=== PATIENT | male | born 1930 | race Caucasian/White ===

== ENCOUNTER 2017-09-25 14:26 | Inpatient (IN) | payer MEDICARE ==
[2017-09-25] MEDS ORDERED: 0.9 % SODIUM CHLORIDE 1,000 ML BAG IV ONE (14:53)
--- NOTE | 2017-09-25 15:03 | Emergency Department Record ---
History of Present Illness - General Chief Complaint: Fall Injury Stated Complaint: FALL Time Seen by Provider: 09/25/17 14:48 Source: Patient Mode of Arrival: EMS Limitations: No limitations - History of Present Illness Initial Comments: The patient is here due to not feeling well for at least 2 weeks. He has had a cough with congestion for 2 weeks. Additionally he has been really weak. Today he had trouble getting off the cammode so his called EMS. The patient denies any CP, fever, chills, SOB, PALACIOS or vomiting. 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 Fall Witnessed: Yes, by family Place Fall Occurred: Home Loss of Consciousness: None Prolonged Down Time?: No Symptoms Prior to Fall: Other Context: Recent illness - Eduard Coma Scale Eye Response: (4) Open spontaneously Motor Response: (6) Obeys commands Verbal Response: (5) Oriented [place] Total: 15 - Related Data Home Medications Medication Instructions Recorded Confirmed Last Taken Furosemide [Furosemide] 40 mg PO DAILY 09/25/17 09/25/17 Unknown Losartan Potassium [Losartan 50 mg PO DAILY 09/25/17 09/25/17 Unknown Potassium] Previous Rx's Medication Instructions Recorded Ascorbic Acid [Vitamin C] 1,000 mg PO DAILY #30 tab 12/08/15 Carvedilol [Coreg] 3.125 mg PO BIDWM #60 tablet 12/08/15 Multivitamin/Iron/Folic Acid 1 tab PO DAILY #100 tablet 12/08/15 [Centrum] Allergies Allergy/AdvReac Type Severity Reaction Status Date / Time No Known Drug Allergies Allergy Verified 09/25/17 14:31 Travel Screening - Travel/Exposure Within Last 30 Days Have you traveled within the last 30 days?: No - Travel/Exposure Within Last Year Have you traveled outside the [place] in the last year?: No - Additonal Travel Details Have you been exposed to anyone with a communicable illness?: No - Travel Symptoms Symptom Screening: None Review of Systems Constitutional: Denies: Chills, Fever Eyes: Denies: Eye discharge ENT: Reports: Congestion Respiratory: Reports: Cough. Denies: Dyspnea Past Medical History - SOCIAL HISTORY Smoking Status: Never smoker Alcohol Use: None Drug Use: None - RESPIRATORY Hx Respiratory Disorders: No Hx Sleep Apnea: Yes (none after neck surgery) - CARDIOVASCULAR Hx Cardio Disorders: Yes Hx Hypertension: Yes Comment:: w/c - NEURO Hx Neuro Disorders: Yes Hx TIA: Yes - GI Hx GI Disorders: Yes Hx Reflux: Yes Hx Ulcer: Yes Hx of Polyps: Yes - Hx Genitourinary Disorders: Yes Hx Bladder Problem: Yes - ENDOCRINE Hx Endocrine Disorders: No Hx Diabetes: No - MUSCULOSKELETAL Hx Musculoskeletal Disorders: Yes Hx Arthritis: Yes - PSYCH Hx Psych Problems: No - HEMATOLOGY/ONCOLOGY Hx Hematology/Oncology Disorders: Yes Hx Cancer: Yes (colon CA-recent resection) Hx Chemotherapy: No Hx Radiation Therapy: No Hx Blood Transfusions: Yes Family Medical History Any Significant Family History?: Yes Hx Cancer: Mother *Cancer Comment: uterine Physical Exam - General General Appearance: Alert, Oriented x3, Cooperative, No acute distress - Head Head exam: Atraumatic, Normocephalic, Normal inspection - Eye Eye exam: Normal appearance, PERRL - ENT Throat exam: Normal inspection. negative: Tonsillar erythema, Tonsillar exudate - Neck Neck exam: Normal inspection, Full ROM. negative: Tenderness - Respiratory Respiratory exam: Normal lung sounds bilaterally. negative: Respiratory distress - Cardiovascular Cardiovascular Exam: Regular rate, Normal rhythm, Normal heart sounds - GI/Abdominal GI/Abdominal exam: Soft, Normal bowel sounds. negative: Tenderness - Extremities Extremities exam: Normal inspection, Full ROM, Normal capillary refill. negative: Tenderness Course Vital Signs 09/25/17 14:40 Temperature 98.6 F Pulse Rate 95 H Respiratory 18 Rate Blood Pressure 160/99 Pulse Ox 96 - Reevaluation(s) Reevaluation #1: The patient is doing OK at this time but is still coughing up colored phlegm. He denies any KAYLAH or SOB presently. I did discuss the issues with the and it appears she cannot handle taking care of him at home due to his overall poor physical condition. Because of that and the fact it appears he has pneumonia we will admit him to the hospital for IV abx's and a social welfare research worker consult. I did discuss the case with Dr. Snyder and he does agree with the plan. 09/25/17 16:17 Medical Decision Making - Data Complexity MDM Data: Labs Ordered and/or Reviewed, X-Ray Ordered and/or Reviewed - Lab Data Result diagrams: 09/25/17 15:00 09/25/17 15:00 - Radiology Data Radiology results: Report reviewed (CXR: Bilateral lower lobe infiltrates, atelectasis vs infiltrates.) Disposition Disposition: Admit Clinical Impression: Physical deconditioning Pneumonia Qualifiers: Pneumonia type: due to unspecified organism Laterality: bilateral Lung location : lower lobe of lung Qualified Code(s): J18.9 - Pneumonia, unspecified organism Disposition: Still a Patient at [facility] Decision to Admit: Admit from ER Decision to Admit Date: 09/25/17 Decision to Admit Time: 16:20 Accepting Physician: Sarah Time Discussed w/Accepting Physician: 16:20 Condition: (2) Stable Forms: Patient Portal Access Time of Disposition: 16:20 Quality - Quality Measures Quality Measures: N/A - Blood Pressure Screening View Details: Yes Does Patient Have Any of the Following: Active Dx of HTN Blood Pressure Classification: Hypertensive Reading Systolic Measurement: 160 Diastolic Measurement: 99 Screening for High Blood Pressure: Patient Exclusion, Hx of HTN [[id number]]
[2017-09-25 15:24] LABS: BASO % 0.1 % (0-6); EOS % 0.1 % (0-6); HEMATOCRIT 41.8 % (42.0-52.0); HEMOGLOBIN 14.1 gm/dl (14.0-18.0); LYMPH % 3.6 % (16-45); MEAN CELL VOLUME 91.7 fl (81-97); MEAN CORPUSCULAR HEMOGLOBIN 30.9 pg (27-33); MEAN CORPUSCULAR HGB CONC 33.7 g/dl (32-36); PLATELET COUNT 397 K/uL (130-400); RED BLOOD COUNT 4.56 M/uL (4.40-5.70); RED CELL DISTRIBUTION WIDTH 12.3 % (11.5-14.5); URINE APPEARANCE CLEAR; URINE BILIRUBIN NEGATIVE (NEGATIVE); URINE BLOOD TRACE-I (NEGATIVE); URINE COLOR YELLOW; URINE GLUCOSE (UA) NEGATIVE (NEGATIVE); URINE KETONE NEGATIVE (NEGATIVE); URINE LEUKOCYTE ESTERASE NEGATIVE (NEGATIVE); URINE NITRITE NEGATIVE (NEGATIVE); URINE PROTEIN NEGATIVE (NEGATIVE); URINE UROBILINOGEN 0.2 E.U./dL (0.20 - 1.00)
[2017-09-25 15:28] LABS: BLOOD UREA NITROGEN 10 mg/dL (8-23); CREATININE 0.6 mg/dL (0.7-1.2); EST GLOMERULAR FILTRATION RATE > 60 mL/min
[2017-09-25 15:29] LABS: WHITE BLOOD COUNT W/O DIFF 25.4 K/uL (4.2-12.2)
[2017-09-25 15:31] LABS: GLUCOSE,RANDOM 207 mg/dL (74-109)
[2017-09-25] MEDS ORDERED: POTASSIUM CHLORIDE 20 MEQ TABLET PO ONE (15:40)
[2017-09-25 15:42] LABS: URINE BACTERIA FEW; URINE EPITHELIAL CELLS 0 - 2 (FEW); URINE WBC 0 - 2 (0-2/hpf)
[2017-09-25 15:46] LABS: PLATELET ESTIMATE NORMAL (NORMAL)
[2017-09-25] MEDS ORDERED: AZITHROMYCIN 500 MG in 0.9 % SODIUM CHLORIDE 250ML 250 ML IVPB ONE (16:15)
[2017-09-25] MEDS ORDERED: CEFTRIAXONE SODIUM 1 GM in 0.9 % SODIUM CHLORIDE 100ML 100 ML IVPB ONE (16:15)
[2017-09-25] MEDS: IPRATROPIUM/ALBUTEROL (0.5MG/3MG) NEB INH SCH ×2 (17:48→21:55)
[2017-09-25] MEDS ORDERED: AZITHROMYCIN 500 MG in 0.9 % SODIUM CHLORIDE 250ML 250 ML IVPB SCH (18:00)
[2017-09-25] MEDS: CARVEDILOL 3.125 MG TABLET PO SCH (18:02)
[2017-09-25] MEDS: GUAIFENESIN/D-METH. 10 ML UDC PO PRN (20:56)
[2017-09-25] MEDS: ACETAMINOPHEN 325 MG TAB PO PRN (20:57)
[2017-09-26] MEDS: DIPHENHYDRAMINE HCL 25 MG CAPSULE PO PRN ×2 (02:13→21:45)
[2017-09-26] MEDS: CEFTRIAXONE SODIUM 1 GM in 0.9 % SODIUM CHLORIDE 100ML 100 ML IVPB SCH ×2 (03:23→16:39)
[2017-09-26] MEDS: IPRATROPIUM/ALBUTEROL (0.5MG/3MG) NEB INH SCH ×5 (06:25→21:28)
[2017-09-26 06:47] LABS: HEMATOCRIT 38.6 % (42.0-52.0); HEMOGLOBIN 12.6 gm/dl (14.0-18.0); MEAN CELL VOLUME 92.8 fl (81-97); MEAN CORPUSCULAR HGB CONC 32.6 g/dl (32-36); MEAN PLATELET VOLUME 11.1 fl (7.4-10.4); PLATELET COUNT 358 K/uL (130-400); RED BLOOD COUNT 4.16 M/uL (4.40-5.70); RED CELL DISTRIBUTION WIDTH 12.2 % (11.5-14.5); WHITE BLOOD COUNT W/O DIFF 16.9 K/uL (4.2-12.2)
[2017-09-26 07:01] LABS: ALB/GLOB RATIO 0.8 (1.1-1.8); ALBUMIN 2.8 g/dL (4.0-5.0); ALKALINE PHOSPHATASE 67 U/L (40-129); ALT/SGPT 16 U/L (<41); AST/SGOT 16 U/L (10.0-50.0); BLOOD UREA NITROGEN 11 mg/dL (8-23); CREATININE 0.6 mg/dL (0.7-1.2); EST GLOMERULAR FILTRATION RATE > 60 mL/min; GLUCOSE,RANDOM 125 mg/dL (74-109); TOTAL PROTEIN 6.5 g/dL (6.6-8.7)
[2017-09-26 07:10] LABS: MEAN CORPUSCULAR HEMOGLOBIN 30.2 pg (27-33)
[2017-09-26] MEDS: CARVEDILOL 3.125 MG TABLET PO SCH ×2 (07:40→16:38)
--- NOTE | 2017-09-26 07:53 | RADIOLOGY REPORT ---
EXAM: CHEST, TWO VIEWS HISTORY: COUGH. DIFFICULTY IN BREATHING AND WEAKNESS. TECHNIQUE: Upright AP and lateral views of the chest were obtained. Comparison: Two view chest radiographic examination dated 11/20/15. Single view chest dated 11/27/15. FINDINGS: The cardio-pericardial silhouette projects borderline enlarged. No definite new pulmonary venous hypertension is seen. Mixed opacities in each lung base are present appearing slightly worsened in the interval. No new lung consolidation, costophrenic angle blunting or pneumothorax. IMPRESSION: 1. 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 2. MIXED PRIMARILY RETICULONODULAR OPACITIES IN THE LOWER LUNGS APPEAR MILDLY WORSENED IN THE INTERVAL. DIAGNOSTIC CONSIDERATIONS INCLUDE CHRONIC INTERSTITIAL CHANGE, ATELECTASIS, INFILTRATE AND MILD EDEMA. JOB NUMBER: [id number] [facility]
[2017-09-26] MEDS: POTASSIUM CHLORIDE 20 MEQ TABLET PO SCH (09:19)
[2017-09-26] MEDS: LOSARTAN POTASSIUM 25 MG TABLET PO SCH (09:19)
[2017-09-26] MEDS: FUROSEMIDE 40 MG TABLET PO SCH (09:20)
--- NOTE | 2017-09-26 09:21 | Rehab Evaluation ---
Patient Information - Patient Information Diagnosis: Acute Pneumonia with deconditioning Ordered Treatment: PT Evaluate and Treat Status: Initial Evaluation Surgery: No Past Medical/Surgical Hx: PAST MEDICAL/SURGICAL HISTORY Past Surgical History Cholecystectomy Back/neck surgery x's 5 T&A Colonoscopy removal of cancerous polyp PMH - Respiratory Hx Respiratory Disorders No Hx Sleep Apnea Yes: none after neck surgery PMH - Cardiovascular Hx Cardiovascular Disorders Yes Hx Hypertension Yes Hx Transient Ischemic Attacks Yes (TIA) Comment: w/c PMH - Neuro Hx Neurological Disorders Yes Hx Transient Ischemic Attacks Yes (TIA) PMH - GI Hx Gastrointestinal Disorders Yes Hx Gastroesophageal Reflux Yes Hx Ulcer Yes PMH - Hx Genitourinary Disorders Yes Hx Bladder Problem Yes PMH - Endocrine Hx Endocrine Disorders No Hx Diabetes No PMH - Musculoskeletal Hx Musculoskeletal Disorders Yes Hx Arthritis Yes PMH - Psych Hx Psychiatric Problems No PMH - Hematology/Oncology Hx Hematology/Oncology Yes Disorders Hx Cancer Yes: colon CA-recent resection Hx Chemotherapy No Hx Radiation Therapy No Social History: Detail (The patient lives in a 2 family home with his and his son's family. The patient lives on the main floor with his , while his son and his family live in the basement level. The patient's home has 3 steps to enter at both the garage entrance and front door entrance. There is a railing at both entrances, but on unspecified side. The patient utilizes a walk- in shower, that does not have a seat, or grab bars present. The toilet is elevated, and has grab bars present. He said that he uses a 4WW for ambulation. He said that he also has access to a wheelchair and commode.) - Time With Patient Total Time Spent With Patient (Min): 25 Treatment Procedures: Detail (PT Initial Evaluation) Subjective Information - Subjective Information Per Patient (The patient states that he is having some pain, and did not specify a location. He stated that the pain was everywhere. Has complaints of increased coughing and secretions.) Objective Data - Pain Pain Present: Yes (Did not specify location) Pain Intensity: 7 Pain Scale Used: Numeric (1 - 10) - Mental Status Patient Orientation: Person, Place (Required cues to orient to place - stated city only.), Time (Patient was not oriented to time, as he stated it was 1977) - ROM Within normal limits - Strength/Tone Within normal limits (B Hip Flexion 4+/5, B Hip Add/Abduction 4+/5, B Knee Extension 5/5, B Knee Flexion 4/5, R Ankle Plantarflexion 5/5 Dorsiflexion 4+/5 , L Ankle Plantarflexion 4/5 Dorsiflexion 3+/5) - Bed Mobility Needs Assist (The patient refused to complete any bed mobility tasks for evaluation purposes on 2 separate visits. Stated that he was too tired/ill to complete activities.) - Transfers Needs Assist (The patient refused to complete any transfer tasks for evaluation purposes on 2 separate visits. Stated that he was too tired/ill to complete activities.) - Balance Balance Sitting: Good (Was able to sit statically without any loss of balance in both his chair and with head of bed elevated.) Balance Standing: Good (Not Assessed - Patient refused to complete any gait activities as he wanted to stay in bed due to feeling ill) - Sensation Intact - Gait Detail (Not assessed - The patient refused gait activities during initial evaluation. Will need to assess gait at future visits to assess for safety in the home.) Therapy Assessment - Therapy Assessment Detail (The patient had minimally decreased strength in the LEs. All mobility and transfer skills were not assessed due to patient refusal because he was feeling ill this morning. The patient's gait and transfer skills will need to be assessed prior to discharge from inpatient stay.) Problem List - Problem List Physical Therapy Problem List: Detail (1) Increased coughing and secretions 2) Decreased energy levels 3) Decreased LE Strength 4) Gait and Mobility not assessed) Goals - Goals Physical Therapy Goals: 1) The patient's gait skills will be assessed to examine safety in the home. 2) The patient's transfers and bed mobiltiy will be assessed to examine patient's functional ability. Prognosis - Prognosis Moderate Plan - Plan Physical Therapy Plan: The patient's gait, transfer skills, and bed mobility will be assessed to make further recommendations for discharge.
[2017-09-26] MEDS: ACETAMINOPHEN 325 MG TAB PO PRN ×2 (09:27→16:38)
--- NOTE | 2017-09-26 10:08 | History & Physical ---
History of Present Illness - Date of Service Date of Service for History & Physical: 09/26/17 - History of Present Illness Admitting Diagnosis: 1. Acute Pneumonia with Deconditioning. History of Present Illness: Mr. Pollard is a 86 y/o who came in because of fall off of the toilet at home. He says that he fell between between the toilet and shower but he did not injure himself. The patient also describes a 3 week cough productive of green phlegm and streaks of blood. The patient describes weakness, loss of appetite, sleep disturbance and has increasing shortness of breath. He tried using over the counter medications but did not get any relief. He denies recent travel or sick contacts and has had influenza vaccine and is up to date on pneumonia vaccine. On admission the patient had chest radiograph which shows some opacification of the lower lungs suspicious for pneumonia. The patient has been started on treatment for community acquired pneumonia and admitted for IV antibiotics. On evaluation at bedside this morning the patient appears to be resting comfortably and does not appear to be in acute distress. He still has intermittent cough despite being on Robitsussin DM PRN. Travel Screening - Travel/Exposure Within Last 30 Days Have you traveled within the last 30 days?: No - Travel/Exposure Within Last Year Have you traveled outside the [place] in the last year?: No - Additonal Travel Details Have you been exposed to anyone with a communicable illness?: No - Travel Symptoms Symptom Screening: None Review of Systems Constitutional: Denies: Chills, Fever Eyes: Denies: Eye discharge ENT: Reports: Congestion Respiratory: Reports: Cough. Denies: Dyspnea Past Medical History - SOCIAL HISTORY Smoking Status: Never smoker Alcohol Use: None Drug Use: None - RESPIRATORY Hx Respiratory Disorders: No Hx Sleep Apnea: Yes (none after neck surgery) - CARDIOVASCULAR Hx Cardio Disorders: Yes Hx Hypertension: Yes Comment:: w/c - NEURO Hx Neuro Disorders: Yes Hx TIA: Yes - GI Hx GI Disorders: Yes Hx Reflux: Yes Hx Ulcer: Yes Hx of Polyps: Yes - Hx Genitourinary Disorders: Yes Hx Bladder Problem: Yes - ENDOCRINE Hx Endocrine Disorders: No Hx Diabetes: No - MUSCULOSKELETAL Hx Musculoskeletal Disorders: Yes Hx Arthritis: Yes - PSYCH Hx Psych Problems: No - HEMATOLOGY/ONCOLOGY Hx Hematology/Oncology Disorders: Yes Hx Cancer: Yes (colon CA-recent resection) Hx Chemotherapy: No Hx Radiation Therapy: No Hx Blood Transfusions: Yes Family Medical History Any Significant Family History?: Yes Hx Cancer: Mother *Cancer Comment: uterine H&P Meds/Allergies - Allergies Allergies: Allergies Allergy/AdvReac Type Severity Reaction Status Date / Time No Known Drug Allergies Allergy Verified 09/25/17 14:31 - Home Medications Home Medications Medication Instructions Recorded Confirmed Last Taken Furosemide [Furosemide] 40 mg PO DAILY 09/25/17 09/25/17 Unknown Losartan Potassium [Losartan 50 mg PO DAILY 09/25/17 09/25/17 Unknown Potassium] Previous Rx's Medication Instructions Recorded Ascorbic Acid [Vitamin C] 1,000 mg PO DAILY #30 tab 12/08/15 Carvedilol [Coreg] 3.125 mg PO BIDWM #60 tablet 12/08/15 Multivitamin/Iron/Folic Acid 1 tab PO DAILY #100 tablet 12/08/15 [Centrum] - Active Medications Active Medications: Current Medications Acetaminophen (Tylenol 325mg) 650 mg PO Q6H PRN PRN Reason: PAIN/TEMP Last Admin: 09/26/17 09:27 Dose: 650 mg Albuterol/Ipratropium (Duoneb) 3 ml INH [facility] Last Admin: 09/26/17 09:51 Dose: 3 ml Carvedilol (Coreg) 3.125 mg PO BIDWM [facility] Last Admin: 09/26/17 07:40 Dose: 3.125 mg Diphenhydramine HCl (Benadryl Capsule) 25 mg PO QHS PRN PRN Reason: INSOMNIA Last Admin: 09/26/17 02:13 Dose: 25 mg Furosemide (Lasix) 40 mg PO DAILY [facility] Last Admin: 09/26/17 09:20 Dose: 40 mg Guaifenesin (Robitussin Dm) 10 ml PO Q6H PRN PRN Reason: COUGH Last Admin: 09/25/17 20:56 Dose: 10 ml Azithromycin 500 mg/ Sodium (Chloride) 250 mls @ 250 mls/hr IVPB Q24H [facility] Stop: 09/30/17 18:01 Last Admin: 09/25/17 18:05 Dose: Not Given Ceftriaxone Sodium 1 gm/ (Sodium Chloride) 100 mls @ 100 mls/hr IVPB Q12H [facility] Stop: 10/01/17 04:01 Last Infusion: 09/26/17 04:23 Dose: Infused Losartan Potassium (Cozaar) 50 mg PO DAILY [facility] Last Admin: 09/26/17 09:19 Dose: 50 mg Potassium Chloride (Klor-Con) 20 meq PO DAILY [facility] Last Admin: 09/26/17 09:19 Dose: 20 meq Physical Exam - Vital Signs Vital Signs: Vital Signs - Last 24 Hrs Temp Pulse Pulse Resp BP Pulse Ox 09/26/17 09:54 95 09/26/17 09:52 85 17 99 09/26/17 09:00 20 09/26/17 06:25 65 18 95 09/26/17 06:00 97.8 F 73 17 181/94 94 L 09/25/17 22:18 98.3 F 75 17 146/87 95 09/25/17 21:55 72 20 93 L 09/25/17 21:00 85 20 09/25/17 17:54 95 09/25/17 17:53 89 17 97 09/25/17 16:58 99.2 F 85 16 201/103 94 L - General General Appearance: Alert, Oriented x3, Cooperative, No acute distress Limitations: No limitations - Head Head exam: Atraumatic, Normocephalic, Normal inspection - Eye Eye exam: Normal appearance, PERRL - ENT Throat exam: Normal inspection. negative: Tonsillar erythema, Tonsillar exudate - Neck Neck exam: Normal inspection, Full ROM. negative: Tenderness - Respiratory Respiratory exam: Normal lung sounds bilaterally. negative: Respiratory distress - Cardiovascular Cardiovascular Exam: Regular rate, Normal rhythm, Normal heart sounds - GI/Abdominal GI/Abdominal exam: Soft, Normal bowel sounds. negative: Tenderness - Extremities Extremities exam: Normal inspection, Full ROM, Normal capillary refill. negative: Tenderness Results - Labs Result Diagrams: 09/26/17 06:24 09/26/17 06:24 Labs Last 24 Hours: Laboratory Results - last 24 hr 09/26/17 09/26/17 06:24 06:24 WBC 16.9 H RBC 4.16 L Hgb 12.6 L Hct 38.6 L MCV 92.8 MCH 30.2 MCHC 32.6 RDW 12.2 Plt Count 358 MPV 11.1 H Neutrophils % 74.0 Band Neutrophils % 1.0 Eosinophils % Not Reportable Basophils % Not Reportable Lymphocytes 15.0 L Monocytes 9.0 Basophils 0.0 Eosinophil Count 1.0 Sodium 139 Potassium 2.8 L* Chloride 97 L Carbon Dioxide 33.0 H Anion Gap 9.0 BUN 11 Creatinine 0.6 L Estimated GFR > 60 Random Glucose 125 H Calcium 8.8 Total Bilirubin 0.50 AST 16 ALT 16 Alkaline Phosphatase 67 Total Protein 6.5 L Albumin 2.8 L Globulin 3.7 Albumin/Globulin Ratio 0.8 L VTE H&P Assessment - Risk for VTE Risk for VTE: Yes Risk Level: High Risk Assessment Date: 09/26/17 Risk Assessment Time: 12:14 VTE Orders Placed or Will Be Placed: Yes Plan - Inpatient Certification Inpatient Certification: Admit to inpatient care: Based on my medical assessment, after consideration of patient's risk factors (age, co-morbidities and patient presenting symptoms and acuity), I expect that this patient will remain in the hospital greater than or equal to two midnights and that the services needed warrant inpatient care because: Patient Risk Factors: CAP/Fall risk Estimated length of stay: The patient may reasonably be expected to be discharged or transferred to a hospital within 96 hours after admission to [facility]. I certify that my determination is in accordance with my understanding of Medicare requirements for reasonable and necessary inpatient services. - Detailed Diagnosis and Plan (1) Community acquired pneumonia Current Visit: Yes Status: Acute Base Code: J18.9 - PNEUMONIA, UNSPECIFIED ORGANISM Comment: 09/26 - CXR suggestive of pneumonia - WBCs trending down 25.4 --> 16K, afebrile - Continue IV Rocephin 1gm/Azithomycin 500mg, respiratory therapy: duonebs q4H, Tylenol 650mg Q6H PRN pain/fever, Gaufenisin/dextromethorphan for cough. - repeat CBC w/ diff, electrolytes in the morning. (2) Hypokalemia Current Visit: Yes Status: Acute Base Code: E87.6 - HYPOKALEMIA Comment: 09/26 - 09/25 2.6 --> 2.8 after repletion. - an additional 20meq this morning and 40meq PO this afternoon. - recheck potassium with am labs. (3) Physical deconditioning Current Visit: Yes Status: Acute Base Code: R53.81 - OTHER MALAISE Comment : - Fall and weakness - Ambulates with a walking stick - PT/OT consulted for evaluation (4) HTN (hypertension) Current Visit: Yes Status: Acute Base Code: I10 - ESSENTIAL (PRIMARY) HYPERTENSION Comment: 09/26 - BP not well controlled, 181/94 - on Losartan 50mg QD, to increase to 75mg, Lasix 20mg daily. (5) Chronic atrial fibrillation Current Visit: Yes Status: Acute Base Code: I48.2 - CHRONIC ATRIAL FIBRILLATION Comment: 09/26 - on telemetry, currently in NSR ( A fib noted on old documentation but pt doesn 't recall.) - CHADsVasc >2 due to age,CVA history, no anticoagualtion likely due to fall hx. - on Coreg 3.125mg BID, (6) History of CVA (cerebrovascular accident) Current Visit: Yes Status: Acute Base Code: Z86.73 - PRSNL HX OF TIA (TIA), AND CEREB INFRC W/O RESID DEFICITS (7) DVT prophylaxis Current Visit: Yes Status: Acute Base Code: [id number] - Comment: 09/26 - Lovenox 40mg daily (8) Code status needs review Current Visit: Yes Status: Acute Base Code: [id number] - Comment: - To be discussed with patient. - Remains full code. - Disposition Stable condition. Continue with IV antibiotics and repeat labs in the morning. Dr. Snyder covering for Dr. Arias today. Dr. Arias will return tomorrow for rounding on Mr. Evans.
[2017-09-26] MEDS ORDERED: POTASSIUM CHLORIDE 20 MEQ/15ML CUP PO ONE (11:34)
--- NOTE | 2017-09-26 11:44 | Rehab Evaluation ---
Patient Information - Patient Information Diagnosis: Acute Pneumonia with deconditioning Ordered Treatment: OT Evaluate and Treat Status: Initial Evaluation Surgery: No Past Medical/Surgical Hx: PAST MEDICAL/SURGICAL HISTORY Past Surgical History Cholecystectomy Back/neck surgery x's 5 T&A Colonoscopy removal of cancerous polyp PMH - Respiratory Hx Respiratory Disorders No Hx Sleep Apnea Yes: none after neck surgery PMH - Cardiovascular Hx Cardiovascular Disorders Yes Hx Hypertension Yes Hx Transient Ischemic Attacks Yes (TIA) Comment: w/c PMH - Neuro Hx Neurological Disorders Yes Hx Transient Ischemic Attacks Yes (TIA) PMH - GI Hx Gastrointestinal Disorders Yes Hx Gastroesophageal Reflux Yes Hx Ulcer Yes PMH - Hx Genitourinary Disorders Yes Hx Bladder Problem Yes PMH - Endocrine Hx Endocrine Disorders No Hx Diabetes No PMH - Musculoskeletal Hx Musculoskeletal Disorders Yes Hx Arthritis Yes Hx Back Injury Yes PMH - Psych Hx Psychiatric Problems No PMH - Hematology/Oncology Hx Hematology/Oncology Yes Disorders Hx Cancer Yes: colon CA-recent resection Hx Chemotherapy No Hx Radiation Therapy No Social History: Detail (The patient lives in a 2 family home with his and his son's family. The patient lives on the main floor with his , while his son and his family live in the basement level. The patient's home has 3 steps to enter at both the garage entrance and front door entrance. There is a railing at both entrances, but on unspecified side. The patient utilizes a walk- in shower with grab bars but no seat. The toilet is elevated, and has grab bars present. He said that he uses a 4WW for ambulation. He said that he also has access to a wheelchair and commode. Pts spouse is responsible for all home mgmt , meal prep and laundry.) Precautions: [place], Fall, Other (Possible confusion) - Time With Patient Total Time Spent With Patient (Min): 40 Treatment Procedures: Detail (OT eval low complexity) Subjective Information - Subjective Information Per Patient Objective Data - Pain Pain Present: Yes (01/31 "all over") - Mental Status Patient Orientation: Person (Pt oriented to self, birthday. He states his age as 89, location as [place], unsure of month and states year as 1975.) - Visual Perception Appears within normal limits for therapeutic activities (Pt wears glasses for reading.) - ROM Within normal limits (Tre UE AROM WNL) - Strength/Tone Within normal limits (Tre shoulder flexion 4-/5, tre elbow, wrist and catering staff member 4+/5) - Coordination Appears within normal limits for therapeutic activities - Sensation Intact - ADL's/IADL's Detail (Pt reports nursing is assisting with self cares, he is toileting on commode and using urinal.) Therapy Assessment - Therapy Assessment Detail (Pt presents with confusion re: location and date; he is refusing to transfer out of bed, ambulate or complete any ADLs for evaluation.) Problem List - Problem List Physical Therapy Problem List: Detail (1) Increased coughing and secretions 2) Decreased energy levels 3) Decreased LE Strength 4) Gait and Mobility not assessed) Occupational Therapy Problem List: Detail (1. Inability to evaluation functional mobility or ADL status. 2. Pt not oriented to place or time.) Goals - Goals Physical Therapy Goals: 1) The patient's gait skills will be assessed to examine safety in the home. 2) The patient's transfers and bed mobiltiy will be assessed to examine patient's functional ability. Occupational Therapy Goals: 1. Assess functional mobility needed for self care activities. 2. Assess self care activities. 3. Pt will be oriented x 3. Prognosis - Prognosis Moderate Plan - Plan Physical Therapy Plan: The patient's gait, transfer skills, and bed mobility will be assessed to make further recommendations for discharge. Occupational Therapy Plan: Evaluate ADLs and functional mobility with recommendations to follow.
[2017-09-26] MEDS ORDERED: LOSARTAN POTASSIUM 25 MG TABLET PO ONE (12:15)
[2017-09-26] MEDS: ENOXAPARIN 40 MG/0.4 ML SYR SQ SCH (13:40)
[2017-09-26] MEDS: PREVAGEN PO SCH (13:41)
[2017-09-26] MEDS: AZITHROMYCIN 500 MG TABLET PO SCH (16:37)
[2017-09-26] MEDS: GUAIFENESIN/D-METH. 10 ML UDC PO PRN (21:45)
[2017-09-27] MEDS: CEFTRIAXONE SODIUM 1 GM in 0.9 % SODIUM CHLORIDE 100ML 100 ML IVPB SCH ×2 (03:55→17:11)
[2017-09-27] MEDS: IPRATROPIUM/ALBUTEROL (0.5MG/3MG) NEB INH SCH ×5 (06:16→21:50)
[2017-09-27] MEDS: CARVEDILOL 3.125 MG TABLET PO SCH ×3 (06:26→18:34)
[2017-09-27 06:57] LABS: HEMATOCRIT 38.1 % (42.0-52.0); HEMOGLOBIN 12.5 gm/dl (14.0-18.0); MEAN CELL VOLUME 93.2 fl (81-97); MEAN CORPUSCULAR HGB CONC 32.8 g/dl (32-36); MEAN PLATELET VOLUME 11.1 fl (7.4-10.4); PLATELET COUNT 378 K/uL (130-400); RED BLOOD COUNT 4.09 M/uL (4.40-5.70); RED CELL DISTRIBUTION WIDTH 12.3 % (11.5-14.5); WHITE BLOOD COUNT W/O DIFF 14.9 K/uL (4.2-12.2)
[2017-09-27 06:58] LABS: MEAN CORPUSCULAR HEMOGLOBIN 30.5 pg (27-33)
[2017-09-27 07:10] LABS: BLOOD UREA NITROGEN 9 mg/dL (8-23); CREATININE 0.5 mg/dL (0.7-1.2); EST GLOMERULAR FILTRATION RATE > 60 mL/min; GLUCOSE,RANDOM 134 mg/dL (74-109)
[2017-09-27] MEDS ORDERED: POTASSIUM CHLORIDE 20 MEQ TABLET PO ONE (07:59)
[2017-09-27] MEDS: GUAIFENESIN/D-METH. 10 ML UDC PO PRN ×3 (08:51→22:48)
[2017-09-27] MEDS ORDERED: METHYLPREDNISOLONE PF 125MG/VIAL IVP ONE (08:51)
[2017-09-27 09:16] LABS: URINE APPEARANCE CLEAR; URINE BILIRUBIN NEGATIVE (NEGATIVE); URINE BLOOD TRACE-I (NEGATIVE); URINE COLOR YELLOW; URINE GLUCOSE (UA) NEGATIVE (NEGATIVE); URINE KETONE NEGATIVE (NEGATIVE); URINE LEUKOCYTE ESTERASE NEGATIVE (NEGATIVE); URINE NITRITE NEGATIVE (NEGATIVE); URINE PROTEIN TRACE (NEGATIVE); URINE UROBILINOGEN 0.2 E.U./dL (0.20 - 1.00)
[2017-09-27 09:33] LABS: URINE RBC 0 - 2 (NONE SEEN); URINE SQUAMOUS EPITHELIAL CELL 0 - 2 /hpf; URINE WBC 0 - 2 (0-2/hpf)
[2017-09-27 09:34] LABS: URINE AMORPHOUS SEDIMENT FEW; URINE BACTERIA FEW
[2017-09-27 10:01] LABS: INFLUENZA A NEGATIVE (NEGATIVE); INFLUENZA B NEGATIVE (NEGATIVE)
[2017-09-27] MEDS: POTASSIUM CHLORIDE 20 MEQ TABLET PO SCH (10:41)
[2017-09-27] MEDS: FUROSEMIDE 40 MG TABLET PO SCH (10:41)
[2017-09-27] MEDS: LOSARTAN POTASSIUM 25 MG TABLET PO SCH (10:41)
[2017-09-27] MEDS: ENOXAPARIN 40 MG/0.4 ML SYR SQ SCH (10:41)
[2017-09-27] MEDS: PREVAGEN PO SCH (10:42)
[2017-09-27] MEDS: AZITHROMYCIN 500 MG TABLET PO SCH (10:43)
--- NOTE | 2017-09-27 15:21 | Physical Therapy Tx Note ---
Physical Therapy Tx Note - Treatment Note Tolerated: Fair Total Time Spent With Patient: 15 Physical Therapy Tx Note: Detail (The patient was laying in bed upon arrival. He was able to transfer from supine to sit independent with use of bed rails. He was able to transfer from sit to stand with CGA x1. He was able to ambulate using 2WW from the bedside to the doorway before needing a rest. He required CGA x1 during ambulation. During gait, he showed increased left hip flexion to help clear the foot, which was weakeness in the dorsiflexors was noted during strength testing during intial evaluation. He was returned to his chair after ambulation, and was left with his call light in reach.) Physical Therapy Problem List: Detail (1) Increased coughing and secretions 2) Decreased energy levels 3) Decreased LE Strength) Physical Therapy Goals: 1) The patient's gait skills will be assessed to examine safety in the home - MET. 2) The patient's transfers and bed mobiltiy will be assessed to examine patient's functional ability - MET Prognosis: Moderate Physical Therapy Plan: The patient's gait, transfer skills, and bed mobility will be assessed to make further recommendations for discharge.
[2017-09-27] MEDS ORDERED: LOSARTAN POTASSIUM 25 MG TABLET PO SCH (15:30)
[2017-09-27] MEDS ORDERED: CLONIDINE TTS-0.1MG PATCH TD SCH (22:30)
[2017-09-28] MEDS: CEFTRIAXONE SODIUM 1 GM in 0.9 % SODIUM CHLORIDE 100ML 100 ML IVPB SCH ×2 (03:24→16:49)
[2017-09-28] MEDS: IPRATROPIUM/ALBUTEROL (0.5MG/3MG) NEB INH SCH ×5 (06:16→21:59)
[2017-09-28] MEDS: FUROSEMIDE 40 MG TABLET PO SCH ×2 (06:42→09:45)
[2017-09-28] MEDS: LOSARTAN POTASSIUM 100 MG TABLET PO SCH ×2 (06:42→09:46)
[2017-09-28] MEDS: CARVEDILOL 3.125 MG TABLET PO SCH ×3 (06:42→22:00)
[2017-09-28 07:32] LABS: BLOOD UREA NITROGEN 10 mg/dL (8-23); CREATININE 0.6 mg/dL (0.7-1.2); EST GLOMERULAR FILTRATION RATE > 60 mL/min; GLUCOSE,RANDOM 155 mg/dL (74-109)
[2017-09-28] MEDS ORDERED: CARVEDILOL 3.125 MG TABLET PO ONE (07:35)
[2017-09-28] MEDS: AZITHROMYCIN 500 MG TABLET PO SCH (09:51)
[2017-09-28] MEDS: POTASSIUM CHLORIDE 20 MEQ TABLET PO SCH (09:54)
[2017-09-28] MEDS: PREVAGEN PO SCH (09:55)
[2017-09-28] MEDS ORDERED: CARVEDILOL 3.125 MG TABLET PO SCH ×2 (10:00)
[2017-09-28] MEDS ORDERED: APIXABAN 5MG TABLET PO SCH (10:00)
--- NOTE | 2017-09-28 13:29 | Physical Therapy Tx Note ---
Physical Therapy Tx Note - Treatment Note Tolerated: Good Total Time Spent With Patient: 25 Physical Therapy Tx Note: Detail (The patient was laying in bed upon arrival. The patient was able to transfer from sit to stand independently, and was able stand without loss of balance while tying pants. The patient was able to transfer from standing to a wheelchair independently. The patient was able to propel himself with use of both LEs and UEs from his room to the chapel and back to his room (about 230 feet total). He was independent with all propulsion and transfers to and from the wheelchair. The patient requested to stay in his wheelchair. Patient was left in wheelchair with table tray in front and call light and water within reach. According to previous PT records and patient report, patient appears to at previous level of functional mobility. His primary form of mobility is the use of wheelchair, and uses walker for short distances (about 8 feet only) and transfers.) Physical Therapy Problem List: Detail (1) Increased coughing and secretions 2) Decreased energy levels 3) Decreased LE Strength) Physical Therapy Goals: 1) The patient's gait skills will be assessed to examine safety in the home - MET. 2) The patient's transfers and bed mobiltiy will be assessed to examine patient's functional ability - MET Prognosis: Good Physical Therapy Plan: The patient was independent with all mobility with use of a wheelchair, supervision for safety is recommended due to patient's cognitive status. PT will continue to monitor the patient's mobility status. The patient is encouraged to transfer and complete wheelchair mobility with nursing staff.
[2017-09-28] MEDS: ACETAMINOPHEN 325 MG TAB PO PRN (14:45)
[2017-09-28] MEDS: HYDROCODONE/APAP 5/325MG TABLET PO PRN ×2 (18:07→22:27)
[2017-09-28] MEDS ORDERED: LABETALOL HCL 5MG/ML, 20ML VIAL IV ONE (21:57)
[2017-09-29] MEDS: HYDROCODONE/APAP 5/325MG TABLET PO PRN (04:24)
[2017-09-29] MEDS: CEFTRIAXONE SODIUM 1 GM in 0.9 % SODIUM CHLORIDE 100ML 100 ML IVPB SCH (04:51)
--- NOTE | 2017-09-29 07:14 | RADIOLOGY REPORT ---
EXAM: LEFT HIP HISTORY: LEFT HIP PAIN STATUS POST FALL TODAY. TECHNIQUE: AP and lateral views of the left hip were obtained. Comparison: Left femur from the same date. Encounter: Initial. FINDINGS: There is a comminuted intertrochanteric fracture of the left proximal femur. There is mild impaction and mild apex posterior angulation. There is no dislocation. The visualized portions of the bony pelvis appear intact. IMPRESSION: MILD IMPACTED COMMINUTED INTERTROCHANTERIC FRACTURE OF THE LEFT FEMUR. JOB NUMBER: [id number] MTDD
--- NOTE | 2017-09-29 07:17 | RADIOLOGY REPORT ---
EXAM: LEFT FEMUR HISTORY: LEFT FEMUR PAIN STATUS POST FALL. TECHNIQUE: AP and lateral views of the left femur were obtained. Comparison: Left hip series from the same date. Encounter: Initial. FINDINGS: The comminuted intertrochanteric fracture of the left hip is not included on these views. The bones are diffusely osteopenic. Tricompartmental arthritic changes are present within the knee. There is no distal femoral fracture. IMPRESSION: THE PATIENT'S COMMINUTED INTERTROCHANTERIC FRACTURE IS NOT INCLUDED ON THESE VIEWS. THE DISTAL FEMUR IS INTACT. JOB NUMBER: [id number] MTDD
--- NOTE | 2017-09-29 07:23 | RADIOLOGY REPORT ---
EXAM: LEFT TIBIA AND FIBULA HISTORY: LEFT LEG PAIN STATUS POST FALL TODAY. TECHNIQUE: AP and lateral views of the left tibia and fibula were obtained. Comparison: Left femur series from the same date. Encounter: Initial. FINDINGS: The bones are diffusely osteopenic. There is no visible acute fracture or dislocation. Degenerative changes and chondrocalcinosis are present within the knee. Mild arthritic changes are also present at the ankle joint. IMPRESSION: NO ACUTE FRACTURE IDENTIFIED. JOB NUMBER: [id number] [facility]
--- NOTE | 2017-09-29 07:28 | CT SCAN REPORT ---
EXAM: CT SCAN OF THE BRAIN WITHOUT CONTRAST HISTORY: FELL TODAY. TECHNIQUE: Standard CT imaging of the brain was performed in the axial plane without contrast. Additional coronal and sagittal reformatted images were also performed. Comparison: 03/21/12. FINDINGS: There is mild generalized atrophy. The ventricles and subarachnoid spaces are otherwise normal. Chronic small vessel ischemic changes are present within the periventricular and subcortical white matter of both cerebral hemispheres and appear similar to the previous study. A small old lacunar infarct is present within the kathryn on the right. A small arachnoid cyst is noted within the left middle cranial fossa along the anterior tip of the left temporal lobe. This appears unchanged from the previous examination measuring approximately 3.4 x 1.7 cm. There is no intraaxial mass, mass effect, hemorrhage, visible acute infarct, or skull fracture. Air fluid levels are present within the maxillary and sphenoid sinuses consistent with acute sinusitis. There is mild opacification of the ethmoid and right frontal sinuses. The orbits and mastoids are normal. IMPRESSION: 1. NO ACUTE INTRACRANIAL ABNORMALITY. 2. STABLE ATROPHY AND CHRONIC SMALL VESSEL ISCHEMIC CHANGES. 3. 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 4. ACUTE BILATERAL MAXILLARY AND SPHENOID SINUSITIS. JOB NUMBER: [id number] MTDD
--- NOTE | 2017-09-29 07:34 | CT SCAN REPORT ---
EXAM: CT SCAN OF THE CERVICAL SPINE WITHOUT CONTRAST HISTORY: STATUS POST FALL. TECHNIQUE: Standard CT imaging of the cervical spine was performed in the axial plane without contrast. Additional coronal and sagittal reformatted images were also performed. Comparison: 03/21/12. Encounter: Initial. FINDINGS: There is straightening of the cervical lordosis which is unchanged from the prior study. The patient is status post corpectomy and anterior fusion from the C3 through the C6 levels. This appears unchanged. Disk space narrowing and end plate degenerative changes are present at the C2-C3, C6-C7, and C7-T1 levels. There is moderate central canal stenosis at the C6-C7 level which appears unchanged from the prior study. The craniocervical and cervicothoracic junctions are normal. There is no acute fracture, subluxation, or prevertebral soft tissue swelling. Neural foraminal narrowing is present at multiple levels and is greatest at the C6-C7 level on the right. Sphenoid and bilateral maxillary sinusitis is noted. The neck soft tissues appear within normal limits. The lung apices appear clear. IMPRESSION: 1. STABLE POST SURGICAL CHANGES AND MULTILEVEL DEGENERATIVE CHANGES. 2. NO ACUTE CERVICAL SPINE PATHOLOGY. JOB NUMBER: [id number] [facility]
--- NOTE | 2017-09-29 12:40 | Discharge Summary ---
DATE OF ADMISSION: 09/25/2017 DATE OF TRANSFER: 09/28/2017 TRANSFER DIAGNOSES: 1. Left hip intertrochanteric fracture, comminuted. 2. Pneumonia, lower bilateral lungs, versus chronic interstitial changes, atelectasis. 3. Chronic atrial fibrillation. 4. Hypertension. 5. Alzheimer's disease. 6. History of a CVA 4 or 5 years ago. 7. Hypercholesterolemia. 8. Peripheral neuropathy. 9. Osteoarthritis involving multiple joints. 10. Spinal stenosis. 11. Tubular adenoma of the colon, which was colon cancer, and that was resected 2 or 3 years ago. ATTENDING PHYSICIAN: Ramos Smith DO REASON FOR HOSPITALIZATION: This 86-year-old male was admitted to the hospital because of progressive weakness and a cough. He was initially seen by Dr. Snyder and Dr. Verdugo, admitted to the hospital for pneumonia, bilaterally lower, and also deconditioning and weakness. He was started on Rocephin and azithromycin. He gradually was improving. SIGNIFICANT TESTING: A chest x-ray showed borderline cardiomegaly without gross pulmonary venous hypertension, mixed primary reticular nodular opacity in the lower lungs appeared mild worse in the interval from his previous chest x-ray 11/20/2015. Diagnostic consideration includes chronic interstitial changes, atelectasis, infiltrate, and mild edema. Because of these findings, he was diagnosed with pneumonia. He has ongoing Alzheimer's disease. EKG showing atrial fibrillation, rate controlled. No acute changes. LABORATORY: WBC was 14,900, hemoglobin was 12.7. His most recent set of electrolytes, sodium was 130, potassium was 3.5, chloride was 98, BUN was 10, creatinine was 0.6. His glucose is running about 155 in the morning. Urine is negative, rbc's 0-2, wbc's 0-2. Influenza A and B were negative. THERAPY PROVIDED: Patient was getting IV Rocephin and azithromycin orally. He gradually was improving; however, today at 2 p.m. he fell out of the wheelchair fracturing his left hip, comminuted intertrochanteric fracture. Because of this, we do not have Orthopedics available and we will transfer to [facility] for orthopedic treatment of his intertrochanteric left hip fracture. DISCHARGE INSTRUCTIONS: Patient will follow up with me, Dr. Smith, after discharge from [facility] or after rehab. Also during this hospitalization, the patient was started on Eliquis for his chronic atrial fibrillation. This will be stopped. He did not get his 10 p.m. dose today. He got a dose this morning at 10 a.m. Patient will be transferred by ambulance to [facility], Dr. Alaina Person. ERICA
== END 2017-09-29 04:30 | disposition short-term general hospital (02) | DRG 195 ==
LOC: ER 14:26 → MEDSURG 16:55
PROVIDERS: ADMIT Emergency Medicine; ATTEND Emergency Medicine
DX: J18.9 Pneumonia, unspecified organism (principal); S72.142A Displaced intertrochanteric fracture of left femur, initial encounter for closed fracture; R53.1 Weakness; R05 Cough; R53.81 Other malaise; I10 Essential (primary) hypertension; E87.6 Hypokalemia; M19.90 Unspecified osteoarthritis, unspecified site; I48.91 Unspecified atrial fibrillation; Z86.73 Personal history of transient ischemic attack (TIA), and cerebral infarction without residual deficits; Z85.038 Personal history of other malignant neoplasm of large intestine; W05.0XXA Fall from non-moving wheelchair, initial encounter; Z91.81 History of falling; Y92.230 Patient room in hospital as the place of occurrence of the external cause
CPT/HCPCS: 70450; 71046; 72125; 80048; 80053; 81001; 85027; 87400; 93005; 94640; 94760; 94761; 96365; 97110; 97165; 97530; 99223; 99285; J0456; J1650; J2930; J7030; J7050

== ENCOUNTER 2017-11-07 12:34 | Observation (INO) | payer MEDICARE ==
--- NOTE | 2017-11-07 12:50 | Emergency Department Record ---
History of Present Illness - General Chief complaint: Fatigue and Weakness Stated complaint: WEAKNESS Time Seen by Provider: 11/07/17 12:35 Source: Patient, EMS Mode of Arrival: EMS Limitations: Other (Dementia) - History of Present Illness Initial comments: 87 yo male patient was brought from home by EMS for weakness. Per EMS the patient has been in bed for 4 days. He was admitted to [facility] in September. He fell as an inpatient out of a wheelchair and fractured his left hip. He was transferred to [facility] for surgery. He was discharged to medical rehab. The reports he has not walk in rehab. She states they discontinued the rehab because he was not able to participate. He was transferred home on Tuesday. He has not walked at home. The reports she is unable to care for him given his size and requirements of care. He urinates and has bowel movements is a disposable diaper. No fever. No cough. She reports he is weaker now. He was diagnosed with a DVT of the Left leg about 7 days ago and is taking Eliquis. He has chronic atrial fibrillation. No cough, chest pain, or shortness of breath noted by the or patient. The patient is a limited historian due to dementia. PCP is Dr Smith. -: Days(s) Severity: Severe Consistency: Constant Improves with: None Worsens with: None Associated Symptoms: Denies other symptoms - [place] Coma Scale Eye Response: (4) Open spontaneously Motor Response: (6) Obeys commands Verbal Response: (5) Oriented (Knows name, , hospital, not date) Eduard Total: 15 - Related Data Home Medications Medication Instructions Recorded Confirmed Last Taken Apixaban [Eliquis] 7.5 mg PO BID 11/07/17 11/07/17 1 Day Ago ~11/06/17 Fluoxetine HCl [Prozac] 10 mg PO DAILY 11/07/17 11/07/17 1 Day Ago ~11/06/17 Hydrochlorothiazide [Hctz] 25 mg PO DAILY 11/07/17 11/07/17 1 Day Ago ~11/06/17 Lisinopril 10 mg PO QAM 11/07/17 11/07/17 1 Day Ago ~11/06/17 Lisinopril 20 mg PO QPM 11/07/17 11/07/17 1 Day Ago ~11/06/17 Potassium Chloride [Klor-Con] 10 meq PO DAILY 11/07/17 11/07/17 1 Day Ago ~11/06/17 Tamsulosin HCl [Flomax] 0.4 mg PO DAILY 11/07/17 11/07/17 1 Day Ago ~11/06/17 Previous Rx's Medication Instructions Recorded Ascorbic Acid [Vitamin C] 1,000 mg PO DAILY #30 tab 12/08/15 Carvedilol [Coreg] 3.125 mg PO BIDWM #60 tablet 12/08/15 Multivitamin/Iron/Folic Acid 1 tab PO DAILY #100 tablet 12/08/15 [Centrum] Allergies Allergy/AdvReac Type Severity Reaction Status Date / Time No Known Drug Allergies Allergy Verified 11/07/17 13:49 Review of Systems Constitutional: Reports: Malaise, Weakness. Denies: Chills, Fever Eyes: Denies: Eye discharge ENT: Denies: Congestion, Throat pain Respiratory: Denies: Cough, Dyspnea, Hemoptysis, Stridor, Wheezes Cardiovascular: Denies: Chest pain, Palpitations, Syncope Endocrine: Reports: Fatigue Gastrointestinal: Denies: Abdominal pain, Diarrhea, Nausea, Vomiting Genitourinary: Denies: Dysuria, Frequency, Hematuria Musculoskeletal: Reports: As per HPI, Arthralgia Skin: Denies: Bruising, Change in color, Rash Neurological: Reports: Weakness. Denies: Headache, Numbness Psychiatric: Denies: Anxiety Hematological/Lymphatic: Reports: As per HPI, Blood Clots. Denies: Easy bleeding, Easy bruising Past Medical History - SOCIAL HISTORY Smoking Status: Never smoker Drug Use: None - RESPIRATORY Hx Respiratory Disorders: No Hx Sleep Apnea: Yes (none after neck surgery) - CARDIOVASCULAR Hx Cardio Disorders: Yes Hx Hypertension: Yes Comment:: w/c - NEURO Hx Neuro Disorders: Yes Hx TIA: Yes - GI Hx GI Disorders: Yes Hx Reflux: Yes Hx Ulcer: Yes Hx of Polyps: Yes - Hx Genitourinary Disorders: Yes Hx Bladder Problem: Yes - ENDOCRINE Hx Endocrine Disorders: No Hx Diabetes: No - MUSCULOSKELETAL Hx Musculoskeletal Disorders: Yes Hx Arthritis: Yes - PSYCH Hx Psych Problems: No - HEMATOLOGY/ONCOLOGY Hx Hematology/Oncology Disorders: Yes Hx Cancer: Yes (colon CA-recent resection) Hx Chemotherapy: No Hx Radiation Therapy: No Hx Blood Transfusions: Yes Family Medical History Hx Cancer: Mother *Cancer Comment: uterine Physical Exam - General General Appearance: Alert, Cooperative, No acute distress Limitations: No limitations, Other (Demntia, memory issues) - Head Head exam: Atraumatic, Normocephalic, Normal inspection - Eye Eye exam: Normal appearance. negative: Conjunctival injection - ENT ENT exam: Normal exam, Mucous membranes moist Ear exam: Normal external inspection Nasal Exam: Normal inspection Mouth exam: Normal external inspection - Neck Neck exam: Normal inspection - Respiratory Respiratory exam: Normal lung sounds bilaterally. negative: Respiratory distress, Rhonchi, Stridor, Wheezes - Cardiovascular Cardiovascular Exam: Regular rate, Normal rhythm, Normal heart sounds - GI/Abdominal GI/Abdominal exam: Soft. negative: Tenderness - Rectal Rectal exam: Other (dried stool noted on the skin, mild superficial glutteal erythema, no skin break down or ulcerations) - exam: Normal inspection. negative: Scrotal swelling - Extremities Extremities exam: Joint swelling, Normal capillary refill (normal cap refill of the feet and toes, no skin changes to the bilateral feet or toes), Pedal edema, Tenderness. negative: Normal inspection Image of Full Body: 1 - mild old bruising and scabbing at the hip incision site, no warmth or erythema 2 - mild diffuse swelling of the leg - Back Back exam: Reports: Normal inspection. Denies: CVA tenderness (R), CVA tenderness (L) - Neurological Neurological exam: Alert - Psychiatric Psychiatric exam: Normal affect, Normal mood - Skin Skin exam: Erythema Course - Reevaluation(s) Reevaluation #1: 11/07/17 12:56 Discharge Summary from [facility] reviewed. L IT Hip Fracture, Pneumonia, atrial fibrillation, HTN, Alzheimer's, CVA, HCL, Neuropathy, Spinal stenosis, Colon tubular adenoma 11/07/17 13:30 EKG Atrial Fib rate is 79, intervals Qtc 482, ST poor R wave, non specific changes, prior EKG was afib. 11/07/17 14:56 I MATEO Smith the patient's PCP Case management will be contacted as well given the inability to care for the patient at home. Medical Decision Making - Lab Data Result diagrams: 11/07/17 13:20 11/07/17 13:20 Disposition Disposition: Admit Clinical Impression: Physical deconditioning, Weakness, DVT (deep venous thrombosis) Disposition: Still a Patient at [facility] Decision to Admit: Admit from ER Decision to Admit Date: 11/07/17 Decision to Admit Time: 14:59 Condition: (2) Stable Forms: Patient Portal Access Time of Disposition: 14:59 Quality - Quality Measures Quality Measures: N/A - Blood Pressure Screening Does Patient Have Any of the Following: Active Dx of HTN Blood Pressure Classification: Hypertensive Reading Systolic Measurement: 195 Diastolic Measurement: 119 Screening for High Blood Pressure: Patient Exclusion, Hx of HTN [G9744]
[2017-11-07] MEDS ORDERED: 0.9 % SODIUM CHLORIDE 1000ML 1,000 ML IV ONE (12:55)
[2017-11-07 13:25] LABS: BASO % 0.3 % (0-6); EOS % 1.1 % (0-6); HEMATOCRIT 40.4 % (42.0-52.0); HEMOGLOBIN 12.7 gm/dl (14.0-18.0); LYMPH % 17.9 % (16-45); MEAN CELL VOLUME 97.1 fl (81-97); MEAN CORPUSCULAR HEMOGLOBIN 30.5 pg (27-33); MEAN CORPUSCULAR HGB CONC 31.4 g/dl (32-36); MONO % 10.7 % (0-9); PLATELET COUNT 360 K/uL (130-400); RED BLOOD COUNT 4.16 M/uL (4.40-5.70); RED CELL DISTRIBUTION WIDTH 13.5 % (11.5-14.5); URINE APPEARANCE CLEAR; URINE BILIRUBIN NEGATIVE (NEGATIVE); URINE BLOOD NEGATIVE (NEGATIVE); URINE COLOR YELLOW; URINE GLUCOSE (UA) NEGATIVE (NEGATIVE); URINE KETONE 15 mg/dL (NEGATIVE); URINE LEUKOCYTE ESTERASE NEGATIVE (NEGATIVE); URINE NITRITE NEGATIVE (NEGATIVE); URINE PROTEIN NEGATIVE (NEGATIVE); URINE UROBILINOGEN 0.2 E.U./dL (0.20 - 1.00); WHITE BLOOD COUNT W/O DIFF 8.9 K/uL (4.2-12.2)
[2017-11-07 13:37] LABS: INR 1.1; PARTIAL THROMBOPLASTIN TIME 31.8 SECONDS (24.5-39.1); PROTHROMBIN TIME (PATIENT) 12.1 SECONDS (9.5-12.1)
[2017-11-07 13:38] LABS: BLOOD UREA NITROGEN 7 mg/dL (8-23); CREATININE 0.6 mg/dL (0.7-1.2); EST GLOMERULAR FILTRATION RATE > 60 mL/min
[2017-11-07 13:39] LABS: TOTAL PROTEIN 6.8 g/dL (6.6-8.7)
[2017-11-07 13:41] LABS: GLUCOSE,RANDOM 111 mg/dL (74-109)
[2017-11-07 13:43] LABS: ALT/SGPT 8 U/L (<41); AST/SGOT 16 U/L (10.0-50.0)
[2017-11-07 13:44] LABS: ALB/GLOB RATIO 1.1 (1.1-1.8); ALBUMIN 3.5 g/dL (4.0-5.0); ALKALINE PHOSPHATASE 113 U/L (40-129)
[2017-11-07 13:54] LABS: THYROID STIMULATING HORMONE 2.25 uIU/mL (0.270-4.20)
[2017-11-07] MEDS ORDERED: LISINOPRIL 20 MG TABLET PO SCH (18:37)
[2017-11-07] MEDS ORDERED: APIXABAN 5MG TABLET PO SCH (22:00)
[2017-11-07] MEDS: CARVEDILOL 3.125 MG TABLET PO SCH (22:24)
--- NOTE | 2017-11-08 07:43 | RADIOLOGY REPORT ---
EXAM: CHEST, TWO VIEWS HISTORY: PNEUMONIA. TECHNIQUE: AP upright and lateral views of the chest were obtained. Comparison: Two view chest 09/25/17. FINDINGS: Stable heart size. Some mild diffuse interstitial prominence similar to before. When comparison is made with the prior study, slight change in distribution of the scattered infiltrate although overall relatively little change in the amount. No definite right pleural effusion seen. There is slight blunting of the left lateral costophrenic angle probably by a small effusion. Thoracic curve to the right with hypertrophic spurring in the spine. Low anterior cervical fusion device. Prominent spurring lower thoracic spine. IMPRESSION: 1. SCATTERED INFILTRATE IN THE LUNGS WHICH OVERALL HAS CHANGED RELATIVELY LITTLE FROM 09/25/17 ALTHOUGH IN A SLIGHTLY DIFFERENT DISTRIBUTION. 2. THERE IS PROBABLY A SMALL LEFT PLEURAL EFFUSION. 3. STABLE CARDIOMEGALY. 4. CHRONIC SKELETAL FINDINGS. 5. CONTINUED FOLLOW-UP SUGGESTED. JOB NUMBER: [id number] MTDD
--- NOTE | 2017-11-08 07:46 | RADIOLOGY REPORT ---
EXAM: LEFT HIP HISTORY: RECENT FRACTURE. TECHNIQUE: AP view of the pelvis and AP and lateral views of the left hip were obtained. Comparison: Left hip 09/28/17. Encounter: Subsequent. FINDINGS: Since the prior exam the patient has undergone an intramedullary lisbeth and transfixing screw fixation of the previously seen intertrochanteric left femoral fracture. Improved alignment of the fracture site with the internal fixation. No acute fracture or dislocation is seen today. Diffuse osteopenia consistent with osteoporosis. IMPRESSION: INTRAMEDULLARY LISBTEH AND COMPRESSION SCREW FIXATION OF THE INTERTROCHANTERIC LEFT FEMORAL FRACTURE WITH IMPROVED ALIGNMENT. NO ACUTE FRACTURE OR DISLOCATION EVIDENT TODAY. OSTEOPOROSIS. JOB NUMBER: [id number] MTDD
[2017-11-08] MEDS: CARVEDILOL 3.125 MG TABLET PO SCH ×2 (08:56→19:12)
[2017-11-08] MEDS ORDERED: LISINOPRIL 10 MG TABLET PO SCH (10:00)
[2017-11-08] MEDS ORDERED: POTASSIUM CHLORIDE 10 MEQ TAB PO SCH (10:00)
--- NOTE | 2017-11-08 11:00 | Rehab Evaluation ---
Patient Information - Patient Information Diagnosis: DVT, Deconditioning Ordered Treatment: PT Evaluate and Treat Status: Initial Evaluation Surgery: No Past Medical/Surgical Hx: PAST MEDICAL/SURGICAL HISTORY Past Surgical History Cholecystectomy Back/neck surgery x's 5 T&A Colonoscopy removal of cancerous polyp left hip PMH - Respiratory Hx Respiratory Disorders Yes Hx Sleep Apnea Yes: none after neck surgery PMH - Cardiovascular Hx Cardiovascular Disorders Yes Hx Deep Vein Thrombosis Yes: current LLL Hx Edema Yes Hx Hypertension Yes Hx Transient Ischemic Attacks Yes (TIA) PMH - Neuro Hx Neurological Disorders Yes Hx Dementia Yes Hx Transient Ischemic Attacks Yes (TIA) PMH - GI Hx Gastrointestinal Disorders Yes Hx Gastroesophageal Reflux Yes Hx Ulcer Yes PMH - Hx Genitourinary Disorders Yes Hx Bladder Problem Yes Comment: inc PMH - Endocrine Hx Endocrine Disorders No Hx Diabetes No PMH - Musculoskeletal Hx Musculoskeletal Disorders Yes Hx Arthritis Yes Comment: recent lt hip fx PMH - Psych Hx Psychiatric Problems No PMH - Hematology/Oncology Hx Hematology/Oncology Yes Disorders Hx Cancer Yes: colon CA-recent resection Hx Chemotherapy No Hx Radiation Therapy No Social History: Detail (The patient lives in a 2 family home with his and his son's family. The patient lives on the main floor with his , while his son and his family live in the basement level. The patient's home has 3 steps to enter at both the garage entrance and front door entrance. There is a railing at both entrances, but side is unspecified. The patient utilizes a walk- in shower, that does not have a seat, or grab bars present. The toilet is elevated and has grab bars present. He states he has not been ambulatory, but has been using a wheelchair for mobility.) Precautions: [place], Fall - Time With Patient Total Time Spent With Patient (Min): 30 Treatment Procedures: Detail (PT Initial Evaluation) Subjective Information - Subjective Information Per Patient (The patient states that he is having some pain in the L LE due to a DVT diagnosed. He says that he has been mostly in bed after discharge from another rehab facility.) Objective Data - Pain Pain Present: Yes Pain Intensity: 4 Pain Scale Used: Numeric (1 - 10) - Mental Status Patient Orientation: Oriented x3 - ROM Within normal limits (The patient had normal ROM in the knees and ankles in both LEs. He had limited ROM in the both hips. He had increased pain with movement due to DVT pain.) - Strength/Tone Within normal limits (The patient was 3+/5 throughout the L Knee and Ankles. The patient was 2/5 with L Hip Flexion. L Hip Adduction/Abduction 4/5. R LE was 4/5 in the hip, knee, and ankle.) - Bed Mobility Needs Assist (The patient required min. assist x 2 to pull the upper body up and to move the LEs out of bed. The patient required max. assist x 1 to lift the LEs back into bed, but was able to lower the upper body independently. He provided some assistance with scooting up in bed, but overall required max. assist x 2 to move to the head of the bed.) - Transfers Needs Assist (The patient completed 3 sit to stand transfers. He required mod to max. assist x 2 for the first transfer, as the patient was mainly pulling up on the walker. The next two transfers the patient was told to push up from the bed surface and bed rail. With these transfers the patient required mod. assist x 2 to complete the transfer and needed UE support on the walker throughout.) - Balance Balance Sitting: Good (No LOB with sitting at the bedside during strength testing.) Balance Standing: Poor (Unable to maintain standing without assistance after sit to stand transfer. Did not attempt ambulation as the patient has stated he is unambulatory.) - Gait Detail (Not assessed as the patient is not ambulating at this time. He has been using a wheelchair for mobility.) Therapy Assessment - Therapy Assessment Detail (The patient shows decreased strength and ROM due to a DVT in the L LE. He requires assistance with bed mobility and transfers, especially with sit to stand transfers. He is not ambulating at this time, but has potential to become ambulatory with an assistive device for short household distances. The patient was cooperative with therapy at evaluation, and demonstrated ability to progress his functional status. He would benefit from continued therapy to address mobility needs as listed above.) Problem List - Problem List Physical Therapy Problem List: Detail (1) Decreased strength in the LEs, L > R 2 ) Increased pain in the L LE due to DVT 3) Difficulty with bed mobility/ transfers 4) Not ambulating at this time.) Goals - Goals Physical Therapy Goals: 1) The patient will be able to transfer from sit to stand with min. assist x1 to increase overall functional ability. 2) The patient will be able to ambulate short household distances with least restrictive assistive device to safely transfer to restroom in the home. 3) The patient will increase LE strength for increased ability to complete transfers and ambulation. 4) The patient will require min. assist with bed mobility to decrease burden on at home. Prognosis - Prognosis Moderate Plan - Plan Physical Therapy Plan: The patient will be seen 1-2x/day M-F for gait training, transfer training, bed mobility, and LE strengthening activities until d/c from [facility]. The patient would benefit from continued therapy after d/c from [facility].
[2017-11-08] MEDS: POTASSIUM CHLORIDE 20 MEQ TABLET PO SCH (11:30)
[2017-11-08] MEDS: TAMSULOSIN HCL 0.4 MG CAP.ER.24H PO SCH (11:30)
[2017-11-08] MEDS: APIXABAN 5MG TABLET PO SCH ×2 (11:31→21:48)
[2017-11-08] MEDS: HYDROCHLOROTHIAZIDE 25 MG TABLET PO SCH (11:32)
[2017-11-08] MEDS: FLUOXETINE HCL 10 MG CAPSULE PO SCH (11:32)
[2017-11-08] MEDS: FUROSEMIDE 40 MG TABLET PO SCH (11:40)
[2017-11-08] MEDS: LOSARTAN POTASSIUM 25 MG TABLET PO SCH (11:40)
[2017-11-08] MEDS: MULTIVITAMINS/MINERALS TABLET PO SCH (11:40)
[2017-11-08] MEDS: ASCORBIC ACID 500 MG TAB PO SCH (11:40)
--- NOTE | 2017-11-08 12:31 | History and Physical Report ---
DATE OF ADMISSION: 11/07/2017 CHIEF COMPLAINT: Weakness. HISTORY OF PRESENT ILLNESS: This 87-year-old male presented to the emergency department by ambulance. He was recently discharged from [facility] after a stay there for rehab. He was admitted to [facility] for a left hip fracture on about 09/24/2017. He was at [facility] for weakness and evaluation and pneumonia. He fell out of a wheelchair fracturing his left hip. He was then transferred to [facility] where the hip was repaired. Approximately 7 days ago he was diagnosed with a DVT in the left lower leg and he is on Eliquis. I think he probably was already on Eliquis prior to that but I am not sure because he has chronic atrial fibrillation also. He was seen in the emergency department by Dr. Woodruff and admitted to the hospital for weakness and the is unable to take care of him. [facility]. He was incontinent of urine and stool and had that all over him when he came to the emergency department. He usually has a disposable diaper and the is now admitted that she cannot take care of him. She [facility] the [facility] because either expenses or she wanted to try to take care of him herself. Dr. Woodruff saw him in the emergency department and diagnosed him with H pylori deconditioning, weakness, history of DVT left lower leg 7 days ago, history of a left hip fracture on 09/24/2017 or 09/25/2017, post repair at [facility]. PAST MEDICAL HISTORY: Chronic atrial fibrillation, hypertension, Alzheimer disease, history of CVA 4-5 years ago, hypercholesterolemia, peripheral neuropathy, osteoarthritis involving multiple joints, spinal stenosis and he has had colon cancer resected 2-3 years ago. He also is nonambulatory for many years. He basically is able to stand and pivot to a wheelchair prior to this hip fracture. PAST SURGICAL HISTORY: Left hip fracture repair September 2017 at [facility], colon cancer resection 2-3 years ago, cholecystectomy, back and neck surgery x5, T&A as a child. MEDICATIONS: 1. Lasix 40 mg once a day. 2. Fluoxetine 10 mg daily. 3. Hydrocodone ([place]) 5 mg q.6 h. p.r.n. 4. Potassium chloride extended release 20 mEq once a day. 5. Flomax 0.4 mg daily. 6. Simethicone 80 mg tablets 2 tablets p.r.n. 3 times a day for gas. 7. Ferrous sulfate 325 once a day. 8. Vitamin D3, 2000 units daily. 9. Vitamin C 1000 mg daily. 10. Losartan 25 mg daily. 11. Phenergan 12.5 q.4 h. p.r.n. nausea. 12. Melatonin 3 mg at h.s. for insomnia. 13. Lisinopril 10 mg daily for hypertension. 14. Prevagen 20 mg daily. 15. Senna Plus 2 tablets p.r.n. constipation. 16. Eliquis 7.5 mg b.i.d. This dose will be checked with the . ALLERGIES: No known drug allergies. FAMILY/PSYCHOSOCIAL HISTORY: Mother had cancer. The patient never smoked. No alcohol or drug use. REVIEW OF SYSTEMS: HEENT: No upper respiratory infection symptoms, cough, cold, or congestion. Cardiovascular: No chest pain, palpitations, or arrhythmia. Respiratory: No cough, cold, or congestion. Gastrointestinal: No nausea, vomiting, diarrhea, black stools, or bloody stools. Genitourinary: No dysuria, hematuria, frequency, or burning on urination. He is incontinent of urine and stool, wears Depends. Musculoskeletal: He does have osteoarthritis, multiple joint aches and pains. He states that the left leg hurts where he had his left hip fracture repaired in September. He also states the pain is mostly from the knee down where his DVT is located in the left leg. His left leg is swollen. Neurological: He has dementia for the last 2-3 years progressively getting worse. He had a previous CVA 4-5 years ago. He has no problems moving his arms or legs at this time except he is not able to stand up on his own. He traditionally in the last 2-3 years has only been able to stand and pivot from a chair to wheelchair or bed to wheelchair mostly because of his stenosis. Endocrine: He denies diabetes or hypothyroidism. No polyuria, polydipsia, or weight changes. He is fatigued and very weak. I think this is mostly deconditioning from his general medical condition and his hip fracture and the DVT. He is not motivated to condition because of his Alzheimer disease. Integument: No rash, ulcers, change in moles, or yellow skin. PHYSICAL EXAMINATION: VITALS: Height 5 feet 11 inches, weight 250 pounds. Temperature 97.6, pulse 68, blood pressure 177/109, respiratory rate 18, pulse ox 94% on room air. HEENT: Pupils are equal, round, and reactive to light and accommodation. Extraocular muscles are intact. Throat is clear. Nose is clear. Tympanic membranes are weston. NECK: Supple. No jugular venous distention. No hepatojugular reflux. No carotid bruits. Thyroid is smooth. CARDIOVASCULAR: Regular rate and rhythm without murmurs, clicks, rubs, or gallops. RESPIRATORY: Clear to auscultation. ABDOMEN: Soft, nontender. No hepatosplenomegaly, no tenderness. Bowel sounds are active. No bruits. EXTREMITIES: There is edema in the left lower leg. I have asked the nurse to remove the pneumatic socks because of the DVT in the left leg. He can wear the pneumatic sock on the good leg. BREASTS: Normal male breasts. RECTAL: Exam deferred. GENITALIA: Deferred. NEUROLOGIC: Cranial nerves II-XII intact. No gross defects. Sensation normal, strength normal. Deep tendon reflexes equal bilaterally with Babinski negative. MENTAL STATUS: He is alert. He is disoriented to time but not person, and place is questionable. He seemed to know he was in [facility]. IMPRESSION: 1. Weakness and deconditioning. is unable to take care of the patient at home. 2. Deep venous thrombosis, left lower leg. 3. Status post hip fracture on 09/25/2017, repaired at [facility]. 4. Status post Alzheimer disease. 5. Status post chronic atrial fibrillation. 6. Hypertension. 7. Hypercholesterolemia. 8. Peripheral neuropathy. 9. Osteoarthritis involving multiple joints. 10. Spinal stenosis. 11. History of colon cancer resected 2-3 years ago. PLAN: Social Work is going to try to work with the for a decision on either getting more help at home or going into long-term care. She opted not to do long-term care 2 days ago at [facility]. Not sure if it was because of cost. We will redo PT/OT to see if we can get him back to his baseline of being able to stand and pivot to a wheelchair. [facility]
--- NOTE | 2017-11-08 13:14 | Rehab Evaluation ---
Patient Information - Patient Information Diagnosis: DVT, Deconditioning Ordered Treatment: OT Evaluate and Treat Status: Initial Evaluation Surgery: No Past Medical/Surgical Hx: PAST MEDICAL/SURGICAL HISTORY Past Surgical History Cholecystectomy Back/neck surgery x's 5 T&A Colonoscopy removal of cancerous polyp left hip PMH - Respiratory Hx Respiratory Disorders Yes Hx Sleep Apnea Yes: none after neck surgery PMH - Cardiovascular Hx Cardiovascular Disorders Yes Hx Deep Vein Thrombosis Yes: current LLL Hx Edema Yes Hx Hypertension Yes Hx Transient Ischemic Attacks Yes (TIA) PMH - Neuro Hx Neurological Disorders Yes Hx Dementia Yes Hx Transient Ischemic Attacks Yes (TIA) PMH - GI Hx Gastrointestinal Disorders Yes Hx Gastroesophageal Reflux Yes Hx Ulcer Yes PMH - Hx Genitourinary Disorders Yes Hx Bladder Problem Yes Comment: inc PMH - Endocrine Hx Endocrine Disorders No Hx Diabetes No PMH - Musculoskeletal Hx Musculoskeletal Disorders Yes Hx Arthritis Yes Comment: recent lt hip fx PMH - Psych Hx Psychiatric Problems No PMH - Hematology/Oncology Hx Hematology/Oncology Yes Disorders Hx Cancer Yes: colon CA-recent resection Hx Chemotherapy No Hx Radiation Therapy No Social History: Detail (The patient lives in a 2 family home with his and his son's family. The patient lives on the main floor with his , while his son and his family live in the basement level. The patient's home has 3 steps to enter at both the garage entrance and front door entrance. There is a railing at both entrances, but side is unspecified. The patient utilizes a walk- in shower, that does not have a seat, or grab bars present. The toilet is elevated and has grab bars present. He states he has not been ambulatory, but has been using a wheelchair for mobility.) Precautions: [place], Fall - Time With Patient Total Time Spent With Patient (Min): 30 Treatment Procedures: Detail (OT eval low complexity) Subjective Information - Subjective Information Per Patient, Other (Per ) Objective Data - Pain Pain Present: Yes (6/10 tre legs, left worse than right) - Mental Status Patient Orientation: Oriented x3 - Visual Perception Appears within normal limits for therapeutic activities - ROM Within normal limits (Tre UE AROM grossly WNL) - Strength/Tone Within normal limits (Tre UE strength grossly 4 to 4+/5 throughout) - Coordination Appears within normal limits for therapeutic activities - Bed Mobility Needs Assist (Pt requires min assist x 2 for supine to sit, for sit to supine he required max assist to lift legs into bed and verbal cues to use UEs, he required max assist x 2 for scooting up in bed) - Transfers Needs Assist (Pt able to stand momentarily with walker x 3 reps with mod to max assist x 2 for first attempt and mod assist x 2 for second and third attempt.) - Balance Balance Sitting: Good Balance Standing: Poor - Sensation Intact - Gait Detail (Pt unable to ambulate at this time) - ADL's/IADL's Detail (Pt is requiring max assist for all self cares at this time.) Therapy Assessment - Therapy Assessment Detail (Pt presents with significant impairments in functional mobility, self cares and poor overall endurance.) Problem List - Problem List Physical Therapy Problem List: Detail (1) Decreased strength in the LEs, L > R 2 ) Increased pain in the L LE due to DVT 3) Difficulty with bed mobility/ transfers 4) Not ambulating at this time.) Occupational Therapy Problem List: Detail (1. Decreased Ind with self care activities 2. Decreased Ind with functional mobility needed for safe and Ind self cares) Goals - Goals Physical Therapy Goals: 1) The patient will be able to transfer from sit to stand with min. assist x1 to increase overall functional ability. 2) The patient will be able to ambulate short household distances with least restrictive assistive device to safely transfer to restroom in the home. 3) The patient will increase LE strength for increased ability to complete transfers and ambulation. 4) The patient will require min. assist with bed mobility to decrease burden on at home. Occupational Therapy Goals: 1. Pt will be Ind with supine to sit at EOB to allow self care activities. 2. Pt will be Ind with upper body bathing and grooming/hygiene activities with set up. Prognosis - Prognosis Moderate Plan - Plan Physical Therapy Plan: The patient will be seen 1-2x/day M-F for gait training, transfer training, bed mobility, and LE strengthening activities until d/c from [facility]. The patient would benefit from continued therapy after d/c from [facility]. Occupational Therapy Plan: OT 2-4 days per week to address endurance, functional mobility and self care activities to maximize his Ind and safety.
[2017-11-08] MEDS ORDERED: ZINC OXIDE 28.35 GM TUBE TOP PRN (22:21)
[2017-11-09] MEDS: CARVEDILOL 3.125 MG TABLET PO SCH ×2 (07:56→18:09)
[2017-11-09] MEDS: APIXABAN 5MG TABLET PO SCH ×2 (09:55→22:12)
[2017-11-09] MEDS: MULTIVITAMINS/MINERALS TABLET PO SCH (09:55)
[2017-11-09] MEDS: LOSARTAN POTASSIUM 25 MG TABLET PO SCH (09:55)
[2017-11-09] MEDS: FUROSEMIDE 40 MG TABLET PO SCH (09:56)
[2017-11-09] MEDS: HYDROCHLOROTHIAZIDE 25 MG TABLET PO SCH (09:56)
[2017-11-09] MEDS: ASCORBIC ACID 500 MG TAB PO SCH (09:56)
[2017-11-09] MEDS: TAMSULOSIN HCL 0.4 MG CAP.ER.24H PO SCH (09:56)
[2017-11-09] MEDS: POTASSIUM CHLORIDE 20 MEQ TABLET PO SCH (09:56)
[2017-11-09] MEDS: FLUOXETINE HCL 10 MG CAPSULE PO SCH (09:56)
--- NOTE | 2017-11-09 12:41 | Physical Therapy Tx Note ---
Physical Therapy Tx Note - Treatment Note Tolerated: Good Total Time Spent With Patient: 15 Physical Therapy Tx Note: Detail (The patient was laying in bed upon arrival. The patient was able to transfer from supine to sitting at the bedside with min. assist x 1 to move the L LE across the bed and onto the floor. While sitting at the bedside, the patient completed 10 heel slides on each LE with minimal to no complaints. Nursing staff requested the patient to be transferred to his recliner. The patient required min. assist x 2 to transfer from sit to stand with first attempt. The following attempt he required mod. assist x 2 to transfer from sit to stand, and the same amount of assistance to transfer into the chair using a standing pivot x 2. Once in the chair, the patient was able to weight shift independently to place linens in the chair. The patient required one more sit to stand transfer to reapply briefs. He required min. assist x 2 with this transfer. He was left in his recliner with call light in reach and chair alarm reset.) Physical Therapy Problem List: Detail (1) Decreased strength in the LEs, L > R 2 ) Increased pain in the L LE due to DVT 3) Difficulty with bed mobility/ transfers 4) Not ambulating at this time.) Physical Therapy Goals: 1) The patient will be able to transfer from sit to stand with min. assist x1 to increase overall functional ability. 2) The patient will be able to ambulate short household distances with least restrictive assistive device to safely transfer to restroom in the home. 3) The patient will increase LE strength for increased ability to complete transfers and ambulation. 4) The patient will require min. assist with bed mobility to decrease burden on at home. Physical Therapy Plan: The patient will be seen 1-2x/day M-F for gait training, transfer training, bed mobility, and LE strengthening activities until d/c from [facility]. The patient would benefit from continued therapy after d/c from [facility].
--- NOTE | 2017-11-09 12:51 | Occupational Therapy Tx Note ---
Occupational Therapy Tx Note - Treatment Note Tolerated: Fair Total Time Spent With Patient: 15 (ADL) Occupational Therapy Treatment Note: Detail (S: Pt supine in bed, ready for therapy. O: Supine to sit with min assist x 1 to move left LE and for pulling upper body into upright. Pt completed agus shoulder AROM x 10 reps in sitting. Pt completed oral hygiene, combing hair and washing face while sitting at EOB, after set up. Pt transferred to chair per PT (see PT note). A: Ind with grooming/hygeine after set up at EOB, improved Ind with bed mobility today) Occupational Therapy Problem List: Detail (1. Decreased Ind with self care activities 2. Decreased Ind with functional mobility needed for safe and Ind self cares) Occupational Therapy Goals: 1. Pt will be Ind with supine to sit at EOB to allow self care activities. 2. Pt will be Ind with upper body bathing and grooming/hygiene activities with set up. Prognosis: Moderate Occupational Therapy Plan: OT 2-4 days per week to address endurance, functional mobility and self care activities to maximize his Ind and safety.
--- NOTE | 2017-11-10 07:35 | Discharge Note ---
VTE H&P Assessment - Risk for VTE Risk for VTE: Yes Risk Level: Moderate Risk Assessment Date: 11/08/17 Risk Assessment Time: 08:00 VTE Orders Placed or Will Be Placed: Yes Discharge Medications - Discharge Medications Prescriptions: Apixaban [Eliquis] 5 mg PO BID #60 tablet Apixaban [Eliquis] 5 mg PO BID #60 tablet Carvedilol [Coreg] 3.125 mg PO BIDWM #60 tablet Fluoxetine HCl [Prozac] 10 mg PO DAILY #30 capsule Furosemide 40 mg PO DAILY #30 tablet Losartan Potassium 50 mg PO DAILY #30 tablet Potassium Chloride [Klor-Con] 20 meq PO DAILY #30 tablet.sa Tamsulosin HCl [Flomax] 0.4 mg PO DAILY #30 cap.er.24h Tamsulosin HCl [Flomax] 0.4 mg PO DAILY #30 cap.er.24h Home Medications: Ambulatory Orders Ascorbic Acid [Vitamin C] 1,000 mg PO DAILY #30 tab 12/08/15 [Last Taken 1 Day Ago ~11/06/17] Multivitamin/Iron/Folic Acid [Centrum] 1 tab PO DAILY #100 tablet 12/08/15 [ Last Taken 1 Day Ago ~11/06/17] Apixaban [Eliquis] 5 mg PO BID #60 tablet 11/10/17 [Last Taken Unknown] Apixaban [Eliquis] 5 mg PO BID #60 tablet 11/10/17 [Last Taken Unknown] Ascorbic Acid [Vitamin C] 1,000 mg PO DAILY tab 11/10/17 [Last Taken Unknown] Carvedilol [Coreg] 3.125 mg PO BIDWM #60 tablet 11/10/17 [Last Taken Unknown] Carvedilol [Coreg] 3.125 mg PO BIDWM #60 tablet 11/10/17 [Last Taken Unknown] Fluoxetine HCl [Prozac] 10 mg PO DAILY #30 capsule 11/10/17 [Last Taken Unknown] Furosemide 40 mg PO DAILY #30 tablet 11/10/17 [Last Taken Unknown] Losartan Potassium 50 mg PO DAILY #30 tablet 11/10/17 [Last Taken Unknown] Multivitamin/Iron/Folic Acid [Centrum] 1 tab PO DAILY tablet 11/10/17 [Last Taken Unknown] Potassium Chloride [Klor-Con] 20 meq PO DAILY tablet.sa 11/10/17 [Last Taken Unknown] Potassium Chloride [Klor-Con] 20 meq PO DAILY #30 tablet.sa 11/10/17 [Last Taken Unknown] Tamsulosin HCl [Flomax] 0.4 mg PO DAILY #30 cap.er.24h 11/10/17 [Last Taken Unknown] Tamsulosin HCl [Flomax] 0.4 mg PO DAILY #30 cap.er.24h 11/10/17 [Last Taken Unknown] Zinc Oxide [Desitin] 28.35 gm TOP ASDIR PRN tube 11/10/17 [Last Taken Unknown] Discharge Note - Date Date of Discharge Note: 11/10/17 Disposition: Home, Self-Care Condition: (2) Stable Additional Instructions: follow up with Dr. Smith november 14 on tuesday Prescriptions: Apixaban [Eliquis] 5 mg PO BID #60 tablet Apixaban [Eliquis] 5 mg PO BID #60 tablet Carvedilol [Coreg] 3.125 mg PO BIDWM #60 tablet Carvedilol [Coreg] 3.125 mg PO BIDWM #60 tablet Fluoxetine HCl [Prozac] 10 mg PO DAILY #30 capsule Furosemide 40 mg PO DAILY #30 tablet Losartan Potassium 50 mg PO DAILY #30 tablet Potassium Chloride [Klor-Con] 20 meq PO DAILY #30 tablet.sa Tamsulosin HCl [Flomax] 0.4 mg PO DAILY #30 cap.er.24h Tamsulosin HCl [Flomax] 0.4 mg PO DAILY #30 cap.er.24h Forms: Patient Portal Access
[2017-11-10] MEDS: CARVEDILOL 3.125 MG TABLET PO SCH (08:23)
[2017-11-10] MEDS: MULTIVITAMINS/MINERALS TABLET PO SCH (11:08)
[2017-11-10] MEDS: LOSARTAN POTASSIUM 25 MG TABLET PO SCH (11:10)
[2017-11-10] MEDS: HYDROCHLOROTHIAZIDE 25 MG TABLET PO SCH (11:12)
[2017-11-10] MEDS: TAMSULOSIN HCL 0.4 MG CAP.ER.24H PO SCH (11:12)
[2017-11-10] MEDS: POTASSIUM CHLORIDE 20 MEQ TABLET PO SCH (11:12)
[2017-11-10] MEDS: APIXABAN 5MG TABLET PO SCH (11:12)
[2017-11-10] MEDS: FLUOXETINE HCL 10 MG CAPSULE PO SCH (11:13)
[2017-11-10] MEDS: ASCORBIC ACID 500 MG TAB PO SCH (11:13)
[2017-11-10] MEDS: FUROSEMIDE 40 MG TABLET PO SCH (11:13)
--- NOTE | 2017-11-10 11:24 | Physical Therapy Tx Note ---
Physical Therapy Tx Note - Treatment Note Tolerated: Fair Total Time Spent With Patient: 15 Physical Therapy Tx Note: Detail (Pt lying in bed upon arrival, awake, cooperative for therapy. Reported abdominal pain, unable to rate numerically. Required moderate assist of one to come to sitting at edge of bed, with LE's and to assume upright sitting, leaning on bedrail. Performed 10 reps each of marching (required assist to perform on L LE), knee extension, ankle pumps on R (assisted on L), hip adduction w/pillow. Pt then stated he had to go to the bathroom; called nrsg for assist. Pt has been using bedpan; left w/nrsg for toileting and hygiene. Returned 40 minutes later; pt in bed, had just called nrsg for medication for back pain. Requested that I return later. Will check on pt later today.) Physical Therapy Problem List: Detail (1) Decreased strength in the LEs, L > R 2 ) Increased pain in the L LE due to DVT 3) Difficulty with bed mobility/ transfers 4) Not ambulating at this time.) Physical Therapy Goals: 1) The patient will be able to transfer from sit to stand with min. assist x1 to increase overall functional ability. 2) The patient will be able to ambulate short household distances with least restrictive assistive device to safely transfer to restroom in the home. 3) The patient will increase LE strength for increased ability to complete transfers and ambulation. 4) The patient will require min. assist with bed mobility to decrease burden on at home. Prognosis: Moderate Physical Therapy Plan: The patient will be seen 1-2x/day M-F for gait training, transfer training, bed mobility, and LE strengthening activities until d/c from [facility]. The patient would benefit from continued therapy after d/c from [facility].
--- NOTE | 2017-11-10 12:21 | Discharge Summary ---
DATE: 11/10/2017 DISCHARGE DIAGNOSES: 1. Deconditioning which is improving. 2. Weakness, improving. 3. 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 He is currently on Eliquis 5 mg b.i.d. He will need this until 01/29/2018. The DVT was discovered on 10/30/2017 at [place]. 4. Status post left hip fracture 09/25/2017. 5. Alzheimer disease. 6. Chronic atrial fibrillation. 7. Hypertension. 8. Hypercholesterolemia. 9. Peripheral neuropathy. 10. Osteoarthritis in multiple joints. 11. Spinal stenosis. Mobility is at best standing and pivoting and sitting back down in a wheelchair. This is the way his mobility was prior to the hip fracture and it is at best the same. 12. History of colon cancer, resected approximately 2 years ago. ATTENDING PHYSICIAN: Ramos Smith DO REASON FOR HOSPITALIZATION: Weakness. This 87-year-old male presented to the emergency department by ambulance. He was recently discharged from [facility] after a rehab stay. He was discharged approximately 2 days prior to coming to our emergency department. The reason he was in [place], he was in our swing bed rehab program trying to get stronger. He fell out of a wheelchair and fractured his left hip on 09/24/2017. He was transferred to [facility] where surgically it was repaired. After the acute care stay at [facility], he was transferred to [facility] for rehab. He was there for the full extent of his benefits and he was sent home because the did not want to place him in long-term care and he was sent him with home care and visiting nurses and rehab. He was home about 2 days and he was full of stool and urine. He was brought back to the emergency department for reevaluation because the stated she could not take care of him. He was evaluated in our emergency department by Dr. Woodruff and admitted to the hospital for weakness. unable to take care of him. She states that she does not want to place him into long-term care because it is too expensive. SIGNIFICANT FINDINGS: In the emergency department, he had x-rays done. He had a chest x-ray which showed scattered infiltrate in the lungs which overall has changed relatively little from 09/25/2017 although in a slightly different distribution which is mostly because of his clinically picture scar tissue. There is probably a small left pleural effusion, stable cardiomegaly, chronic skeletal findings, continued followup suggested. He also had a left hip re-x-ray showing intramedullary ray and compression screw fixation of the inner trochanteric left femoral fracture with improved alignment. No acute fracture or dislocation evident today. Osteoporosis. His laboratory findings were WBC 8900, hemoglobin 12.7, platelet count 360,000, lymphs 17, granulocytes 70%, monos were 10. Potassium 3.3, sodium 139, chloride 96, BUN 7, creatinine 0.6, magnesium 1.9. Liver enzymes normal. Albumin 3.5, slightly low. Urine showing ketones, specific gravity 1.015. No signs of infection. He has had no fevers, no cough, no congestion. Vital signs: Temperature 98.8, pulse 60, blood pressure 140/76, respiratory rate 16, pulse ox 97% on room air. THERAPY PROVIDED: The patient was given observation therapy because he had no medical needs for inpatient therapy. He was in our hospital in observation for the last 3 days to try to get him placement. extrusion utility worker has been working on that along with Mikala Yu to place him where the would like him to go. At this point the decision was made to go home with home nursing and physical therapy to continue to assist him at home. HOSPITAL COURSE: He has been stable, improving. CONDITION ON DISCHARGE: Improved. DISCHARGE INSTRUCTIONS: Follow up with Dr. Smith on 11/14/2017. These discharge medications are the medications he should be on and only these medications: Coreg 3.125 b.i.d., Centrum 1 a day, Flomax 0.4 mg daily, potassium chloride 20 mEq daily, Lasix 40 mg daily, Prozac 10 mg daily, vitamin C 1000 mg daily, Eliquis 5 mg b.i.d. for 3 months and his finish date will be 01/29/2018. My ultimate recommendation was long-term care because I do not feel the is going to be able to handle this patient at home. However, the is choosing not to do that because of cost. She is planning to take him home with home health care. ERICA
== END 2017-11-10 16:20 | disposition home or self-care (01) ==
LOC: ER 12:34 → INTOOBSV 18:11 → MEDSURG 18:11
PROVIDERS: ADMIT Emergency Medicine; ATTEND Emergency Medicine
DX: R53.81 Other malaise (principal); I82.492 Acute embolism and thrombosis of other specified deep vein of left lower extremity; I10 Essential (primary) hypertension; I48.2 Chronic atrial fibrillation; Z79.01 Long term (current) use of anticoagulants; F03.90 Unspecified dementia, unspecified severity, without behavioral disturbance, psychotic disturbance, mood disturbance, and anxiety; G62.9 Polyneuropathy, unspecified; Z86.73 Personal history of transient ischemic attack (TIA), and cerebral infarction without residual deficits; Z85.038 Personal history of other malignant neoplasm of large intestine; S72.001S Fracture of unspecified part of neck of right femur, sequela
CPT/HCPCS: 83735; 85025; 85730; 85610; 80053; 81003; 84443; 71046; 73502; 93005; 93010; J3490 ×6; 97530; 97535; 99285; J7030

== ENCOUNTER 2018-07-12 15:01 | Emergency (ER) | payer MEDICARE ==
--- NOTE | 2018-07-12 15:22 | Emergency Department Record ---
History of Present Illness - General Chief complaint: Extremity Problem Stated complaint: BLOOD CLOT Time Seen by Provider: 07/12/18 15:08 Source: Patient, Family Mode of Arrival: Stretcher Limitations: No limitations - History of Present Illness Initial comments: The patient is here due to having an outpatient L leg DVT study performed by [facility] yesterday due to having a hx of a L leg clot for which he is taking Eliquis. The ordering doctor received a call today from the Radiology dept stating the patient may have a new DVT. Due to that he was sent to the ER. The patient denies any leg pain, SOB, KAYLAH, CP, or leg swelling. He has a hx of L hip fx and is presently bedridden at home and does not walk. The patient's caregiver who is his states there are no changes to his health. MD Complaint: Other Onset/Timin -: Days(s) Location: Left, Lower Leg - Related Data Home Medications Medication Instructions Recorded Confirmed Last Taken Cholecalciferol (Vitamin D3) 2,000 unit PO 07/12/18 07/12/18 07/12/18 [Vitamin D3] Sulfamethoxazole/Trimethoprim 07/12/18 07/12/18 07/12/18 [Sulfamethoxazole-Tmp Ds Tablet] Trazodone HCl [Desyrel] 50 mg PO DAILY 07/12/18 07/12/18 07/12/18 Previous Rx's Medication Instructions Recorded Multivitamin/Iron/Folic Acid 1 tab PO DAILY #100 tablet 12/08/15 [Centrum] Apixaban [Eliquis] 5 mg PO BID #60 tablet 11/10/17 Carvedilol [Coreg] 3.125 mg PO BIDWM #60 tablet 11/10/17 Furosemide 40 mg PO DAILY #30 tablet 11/10/17 Losartan Potassium 50 mg PO DAILY #30 tablet 11/10/17 Multivitamin/Iron/Folic Acid 1 tab PO DAILY tablet 11/10/17 [Centrum] Potassium Chloride [Klor-Con] 20 meq PO DAILY tablet.sa 11/10/17 Allergies Allergy/AdvReac Type Severity Reaction Status Date / Time No Known Drug Allergies Allergy Verified 07/12/18 15:16 Review of Systems Constitutional: Denies: Chills, Fever Eyes: Denies: Eye discharge ENT: Denies: Congestion Respiratory: Denies: Cough, Dyspnea Cardiovascular: Denies: Chest pain Endocrine: Denies: Fatigue Past Medical History - SOCIAL HISTORY Smoking Status: Never smoker - RESPIRATORY Hx Respiratory Disorders: Yes Hx Sleep Apnea: Yes (none after neck surgery) - CARDIOVASCULAR Hx Cardio Disorders: Yes Hx Deep Vein Thrombosis: Yes (current LLL) Hx Edema: Yes Hx Hypertension: Yes - NEURO Hx Neuro Disorders: Yes Hx Dementia: Yes Hx TIA: Yes - GI Hx GI Disorders: Yes Hx Reflux: Yes Hx Ulcer: Yes Hx of Polyps: Yes - Hx Genitourinary Disorders: Yes Hx Bladder Problem: Yes Comment:: inc - ENDOCRINE Hx Endocrine Disorders: No Hx Diabetes: No - MUSCULOSKELETAL Hx Musculoskeletal Disorders: Yes Hx Arthritis: Yes Comment:: recent lt hip fx - PSYCH Hx Psych Problems: No - HEMATOLOGY/ONCOLOGY Hx Hematology/Oncology Disorders: Yes Hx Cancer: Yes (colon CA-recent resection) Hx Chemotherapy: No Hx Radiation Therapy: No Hx Blood Transfusions: Yes Family Medical History Hx Cancer: Mother *Cancer Comment: uterine Physical Exam - General General Appearance: Alert, Cooperative, No acute distress - Head Head exam: Atraumatic, Normocephalic, Normal inspection - Eye Eye exam: Normal appearance, PERRL - Neck Neck exam: Normal inspection, Full ROM. negative: Tenderness - Respiratory Respiratory exam: Normal lung sounds bilaterally. negative: Respiratory distress - Cardiovascular Cardiovascular Exam: Irregular rhythm. negative: Gallop - GI/Abdominal GI/Abdominal exam: Soft, Normal bowel sounds. negative: Tenderness - Extremities Extremities exam: Normal inspection, Normal capillary refill. negative: Calf tenderness, Full ROM, Joint swelling, Pedal edema, Tenderness - Neurological Neurological exam: Alert. negative: Motor sensory deficit Course - Reevaluation(s) Reevaluation #1: I did discuss the Leg Doppler result with the patient and family and the need for F/U with Dr. Bah for further medication adjustments. 07/12/18 17:22 Reevaluation #2: The patient and are aware of the neg tests and will F/U with DR. Bah tomorrow. 07/12/18 18:03 Medical Decision Making - Data Complexity MDM Data: Labs Ordered and/or Reviewed, X-Ray Ordered and/or Reviewed - Lab Data Result diagrams: 07/12/18 15:45 07/12/18 15:45 - Radiology Data Radiology results: Report reviewed (L leg Doppler: Neg for DVT.) Disposition Disposition: Discharge Clinical Impression: Physical deconditioning Disposition: Home, Self-Care Condition: (2) Stable Instructions: Deep Vein Thrombosis Prevention (ED) Additional Instructions: Please continue your regular medicines and please see your family doctor next week for further evaluation. Return to the ER for any worsening symptoms. Forms: Patient Portal Access Time of Disposition: 17:24 Quality - Quality Measures Quality Measures: N/A - Blood Pressure Screening View Details: Yes Does Patient Have Any of the Following: Active Dx of HTN Blood Pressure Classification: Hypertensive Reading Systolic Measurement: 183 Diastolic Measurement: 98 Screening for High Blood Pressure: Patient Exclusion, Hx of HTN [[id number]]
[2018-07-12 15:51] LABS: BASO % 0.2 % (0-6); EOS % 1.4 % (0-6); GRAN % 73.4 % (47-80); HEMOGLOBIN 13.3 gm/dl (14.0-18.0); LYMPH % 18.4 % (16-45); MEAN CELL VOLUME 93.8 fl (81-97); MEAN CORPUSCULAR HEMOGLOBIN 30.4 pg (27-33); MEAN CORPUSCULAR HGB CONC 32.4 g/dl (32-36); MONO % 6.6 % (0-9); PLATELET COUNT 262 K/uL (130-400); RED BLOOD COUNT 4.37 M/uL (4.40-5.70); RED CELL DISTRIBUTION WIDTH 13.6 % (11.5-14.5); WHITE BLOOD COUNT W/O DIFF 10.7 K/uL (4.2-12.2)
[2018-07-12 16:00] LABS: BLOOD UREA NITROGEN 10 mg/dL (8-23); CREATININE 0.9 mg/dL (0.7-1.2); EST GLOMERULAR FILTRATION RATE > 60 mL/min
[2018-07-12 16:02] LABS: INR 1.1; PARTIAL THROMBOPLASTIN TIME 32.4 SECONDS (24.5-39.1); PROTHROMBIN TIME (PATIENT) 11.5 SECONDS (9.5-12.1)
[2018-07-12 16:03] LABS: GLUCOSE,RANDOM 133 mg/dL (74-109)
--- NOTE | 2018-07-14 11:44 | US VENOUS DOPPLER REPORT ---
DATE: 07/12/2018 at 4:15 p.m. EXAM: EMERGENCY VENOUS DOPPLER ULTRASOUND OF THE LEFT LOWER EXTREMITY. HISTORY: LEFT LEG PAIN AND SWELLING. TECHNIQUE: Emergency venous Doppler ultrasound of the left lower extremity was performed with the routine venous anatomy evaluated from the level of the external iliac vein in the left inguinal region down into the calf to include the anterior and posterior tibial veins as well as the peroneal vein. Color flow and spectral analysis were utilized and also supplemented with compression and flow augmentation maneuvers. COMPARISON: Prior venous Doppler ultrasound of the left lower extremity dated 01/08/2014 which was reported as negative. FINDINGS: The venous Doppler ultrasound of the left lower extremity appears negative. Flow is seen throughout with color flow and spectral analysis Doppler with no deep venous thrombosis identified. Compression and flow augmentation was evident where evaluated in the thigh and popliteal regions as well. IMPRESSION: NEGATIVE VENOUS DOPPLER ULTRASOUND OF THE LEFT LOWER EXTREMITY WITH NO DEEP VENOUS THROMBOSIS IDENTIFIED. JOB NUMBER: [id number] MTDD
== END 2018-07-12 19:05 | disposition home or self-care (01) ==
LOC: ER 15:01
DX: M79.662 Pain in left lower leg (principal); R53.81 Other malaise; I10 Essential (primary) hypertension; Z86.718 Personal history of other venous thrombosis and embolism; Z79.01 Long term (current) use of anticoagulants; Z86.73 Personal history of transient ischemic attack (TIA), and cerebral infarction without residual deficits
CPT/HCPCS: 80048; 85025; 85610; 85730; 99283; 99284